=== PATIENT | female | born 1970 | race Caucasian/White ===

== ENCOUNTER 2020-02-22 10:02 | Emergency (ER) | payer BC, SELFPAY ==
[2020-02-22 10:03] VITALS: BP 140/79; PULSE 79; RESP 16; TEMP 36.8; O2SAT 98; BMI 29.6
--- NOTE | 2020-02-22 10:19 | HMH.EDHA ---
ED Disposition Clinical Impression: Viral pharyngitis Disposition: Home, Self-Care Condition on Discharge: Good Instructions: DI for Headache Additional Instructions: Please self quarantine until you feel healthy or if your COVID test does come back positive please quarantine for 14 days after the test. If the COVID test does come back negative do not go out to the public until you feel 100% perfectly healthy. Referrals: Mahesh Gomes [Primary Care Provider] - - Critical Care Critical Care Time: No Attestation: On 02/22/20, the high probability of a clinically significant, sudden or life threatening deterioration of the following system(s) required my full and direct attention, intervention and personal management. The time I documented below is in addition to time spent performing reported procedures but includes the following listed in this critical care notation. Medical Decision Making - Medical Records Medical records reviewed: Yes: I reviewed the patient's medical records. - [place] Inquiry Pt receiving controlled substance: No Vital Signs: 02/22/20 10:03 Temperature 98.2 F Temperature Source Oral Pulse Rate [Radial] 79 Respiratory Rate 16 Blood Pressure [Right Arm] 140/79 Blood Pressure Mean [Right Arm] 99 Blood Pressure Source [Right Arm] Automatic Cuff Blood Pressure Position [Right Arm] Sitting 02 Sat by Pulse Oximetry 98 Oxygen Delivery Method Room Air - Lab Data Lab results reviewed: Yes: I reviewed the patient's lab results. Lab Results 02/22/20 10:09: Group A Strep Rapid Negative Orders (Tests/Meds): ORDERS Category Date Time Status SARS-CoV-2, JOY Stat Lab 02/22/20 10:35 Ordered Strep Screen Confirmation Stat Micro 02/22/20 10:09 Received Medical Decision Narrative: Given patient's symptoms and with a negative strep test we will go ahead and COVID romaine. Headache HPI - General Chief Complaint: Headache Stated Complaint: fever,sore throat,headache Time Seen by Provider: 02/22/20 10:19 Mode of Arrival: Ambulatory Source of Information: Patient Limitations: No Limitations Description of Symptoms (Recalled from ER Triage Doc. by RN): Sore throat and headache since yesterday - History of Present Illness HPI Narrative: 49-year-old female presents the ED complaining of sore throat and headache. She states the symptoms started yesterday and she states it progressively got worse as the days gone on. Patient also states she has subjective fever last night where she had shakes and chills and was sweating and then felt like she was very cold as well. Her body temperature was not elevated but she did have subjective fever. 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 Not around patient's been around other healthcare workers have been around sick patients. Otherwise no other complaints - Related Data Previous Rx's Medication Instructions Recorded azithromycin 250 mg tablet 250 mg PO QDAY 5 Days #6 tab 04/09/19 Allergies Allergy/AdvReac Type Severity Reaction Status Date / Time No Known Allergies Allergy Unverified 09/17/17 14:41 [facility] History - Hepatitis A Screen Drug use history?: No High risk sexual behaviors?: No History of sexually transmitted infection?: No Currently employed?: No Childcare worker?: No Do you have indoor plumbing?: Yes Do you have electricity?: Yes Attestation statement:: This patient has been screened for Hepatitis A risk factors. I have reviewed the patient's past medical history: Yes - Social History Educational Level: Completed High School Alcohol Intake: never Occupational Status: employed Housing: house ROS Obtained: Yes All systems reviewed & no additional complaints - Constitutional Constitutional: Reports system reviewed and no additional complaints, except as docu - Eyes Eyes: Reports system reviewed and no additional complaints, except as docu - ENT Ea
[2020-02-22 10:23] LABS: Strep Scrn Group A (Rapid) Negative (Negative)
--- NOTE | 2020-02-22 11:13 | PC.NURSE ---
Spoke with Brea in lab related to Covid testing. States it will be a little while before they can get down here.
--- NOTE | 2020-02-22 11:29 | PC.NURSE ---
Spoke with Brea in the lab regarding the delay in the COVID test. She stated that the person doing the tests was on second floor collecting labs and that as soon as she was available she would sent her down.
[2020-02-22 11:48] VITALS: BP 140/79; PULSE 79; RESP 16; TEMP 36.8; O2SAT 98
[2020-02-23 10:57] LABS: Covid-19 Nasal PCR Sendout UK NOT DETECTED
== END 2020-02-22 11:52 | disposition home or self-care (01) ==
PROVIDERS: Emergency Provider Family Medicine; PCP Family Medicine
DX: J02.9 Acute pharyngitis, unspecified (principal); J45.909 Unspecified asthma, uncomplicated
CPT/HCPCS: 87430; 99282; U0003

== ENCOUNTER → 2020-10-08 14:30 | Outpatient (CLI) | payer BC, SELFPAY | PROVIDERS: PCP Nurse Practitioner Family; Visit Provider Nurse Practitioner Family | DX: Z11.52 Encounter for screening for COVID-19 (principal) | CPT/HCPCS: U0003 ==

== ENCOUNTER 2020-10-14 10:46 | Emergency (ER) | payer BC, SELFPAY ==
[2020-10-14 11:10] VITALS: BP 132/89; PULSE 101; RESP 14; TEMP 36.9; O2SAT 98; BMI 29.6
--- NOTE | 2020-10-14 11:25 | ED_ITS ---
[facility] Disposition Clinical Impression: Post-nasal drainage Disposition: Home, Self-Care Condition on Discharge: Good Instructions: DI for Viral Upper Respiratory Infection -- Adult Referrals: Mahesh Gomes [Primary Care Provider] - Time of Disposition: 11:27 Medical Decision Making - [place] Inquiry Pt receiving controlled substance: No Vital Signs: 10/14/20 11:10 Temperature 98.5 F Temperature Source Oral Pulse Rate [Right Brachial] 101 H Respiratory Rate 14 Blood Pressure [Right Arm] 132/89 Blood Pressure Mean [Right Arm] 103 Blood Pressure Source [Right Arm] Automatic Cuff Blood Pressure Position [Right Arm] Sitting 02 Sat by Pulse Oximetry 98 Oxygen Delivery Method Room Air Orders (Tests/Meds): ED MEDICATIONS Discontinued Medications Generic Name Dose Route Start Last Admin Trade Name Freq PRN Reason Stop Dose Admin Methylprednisolone Sodium Succinate 125 mg 10/14/20 11:28 Methylprednisolone Sod Succ 125mg Vial IM 10/14/20 11:29 ONCE ONE [facility] HPI - General Stated complaint: covid exposure Time Seen by Provider: 10/14/20 11:25 - History of Present Illness Provider Complaint: Patient has been exposed to COVID19, was tested and was negative, but is quarantining. Does not want to be retested but is requesting a steroid shot to help dry up drainage that she is having. Denies fever, sore throat, loss of taste or smell, vomiting or diarrhea. Onset (ago): day(s) (5) Location: face Relieving factors: none Exacerbating factors: none Associated symptoms: denies other symptoms Treatments prior to arrival: none - Related Data Previous Rx's Medication Instructions Recorded azithromycin 250 mg tablet 250 mg PO QDAY 5 Days #6 tab 04/09/19 Allergies Allergy/AdvReac Type Severity Reaction Status Date / Time No Known Allergies Allergy Verified 10/14/20 11:25 [facility] History - Hepatitis A Screen Attestation statement:: This patient has been screened for Hepatitis A risk factors. I have reviewed the patient's past medical history: Yes - Social History Alcohol Intake: never Occupational Status: employed Housing: house ROS Obtained: Yes All systems reviewed & no additional complaints - ENT Ears, Nose, Mouth, and Throat: Reports nasal congestion Physical Exam - General General appearance: alert, in no apparent distress - Head Head exam: normocephalic - Eye Eye exam: Present: PERRL - Expanded ENT Exam Throat exam: Present: other (postnasal drainage) - Respiratory Respiratory exam: Present: normal lung sounds bilaterally - Cardiovascular Cardiovascular exam: Present: regular rate, normal rhythm - Neurological Exam Neurological exam: Present: alert, oriented X3 - Psychiatric Psychiatric exam: Present: normal affect, normal mood
[2020-10-14 11:43] VITALS: BP 132/89; PULSE 101; RESP 14; TEMP 36.9; O2SAT 98
== END 2020-10-14 11:45 | disposition home or self-care (01) ==
PROVIDERS: Emergency Provider Physician Assistant; PCP Family Medicine
DX: Z20.822 Contact with and (suspected) exposure to COVID-19 (principal); R09.82 Postnasal drip
CPT/HCPCS: 96372; 99202; G0463

== ENCOUNTER 2020-10-19 20:50 | Emergency (ER) | payer BC, SELFPAY ==
[2020-10-19 21:02] VITALS: BP 121/93; PULSE 95; RESP 15; TEMP 36.9; O2SAT 96; BMI 29.2
--- NOTE | 2020-10-19 21:11 | CT_ITS ---
PROCEDURE: CT ANGIO CHEST CLINCIAL INDICATION: chest discomfort Shortness of breath, cough, fever, Covid19 COMPARISON: No exams were available for comparison TECHNIQUE: IV Contrast: 70ML Isovue 370 Axial images obtained with sagittal and coronal reformats. All CT scans at the facility use one or more dose reduction, viz: automated exposure control, ma/kV adjustment per patient size (including targeted exams where dose is matched to indication, i.e. head), or iterative reconstruction technique. FINDINGS: HEART AND MEDIASTINAL STRUCTURES: No evidence of pulmonary embolus, aortic aneurysm, or aortic dissection.. There are scattered small nodes within the mediastinum. LUNGS AND PLEURAL SPACES: Multi focal mostly peripheral areas of ground-glass attenuation consistent with Covid19 pneumonia. No effusions. There is a 5 mm subpleural nodule in the left lower lobe laterally BONY STRUCTURES: No acute bony abnormalities apparent. UPPER ABDOMEN: Unremarkable. ADDITIONAL FINDINGS: No other significant abnormalities. IMPRESSION: 1. No evidence of pulmonary embolus, aortic aneurysm, or aortic dissection. 2. Multifocal bilateral ground-glass infiltrates in keeping with Covid19 pneumonia Dictated by: Zeeshan Madison MD 10/20/2020 06:17 Zeeshan Madison MD in [place] 10/20/2020 06:17
--- NOTE | 2020-10-19 21:11 | XR_ITS ---
PROCEDURE: XR CHEST PORTABLE CLINICAL HISTORY: soa Shortness of air, possible Covid19 COMPARISON: CT CT ANGIO CHEST from 10/19/2020 FINDINGS: The cardiomediastinal silhouette and pulmonary vascularity are within normal limits. Patchy ground-glass infiltrate present in the right mid and lower lung zone and left perihilar region. No effusions No acute bony abnormalities. IMPRESSION: Patchy bilateral ground-glass infiltrates suspicious for Covid19 pneumonia Dictated by: Zeeshan Madison MD 10/20/2020 05:36 Zeeshan Madison MD in [place] 10/20/2020 05:36
[2020-10-19 21:18] LABS: Adenovirus,PCR Not Detected (NotDetected); Bordetella Pertussis Not Detected (NotDetected); Chlamydophila Pneumoniae, PCR Not Detected (NotDetected); Coronavirus 229E Not Detected (NotDetected); Coronavirus NL63 Not Detected (NotDetected); Coronavirus OC43 Not Detected (NotDetected); Coronovirus HKU1,PCR Not Detected (NotDetected); Human Metapneumovirus Not Detected (NotDetected); Influenza A, PCR Not Detected (NotDetected); Influenza AH1, 2009 Not Detected (NotDetected); Influenza AH1, PCR Not Detected (NotDetected); Influenza AH3,PCR Not Detected (NotDetected); Influenza B, PCR Not Detected (NotDetected); Mycoplasma Pneumoniae, PCR Not Detected (NotDetected); Parainfluenza 1, PCR Not Detected (NotDetected); Parainfluenza 2, PCR Not Detected (NotDetected); Parainfluenza 3, PCR Not Detected (NotDetected); Parainfluenza 4, PCR Not Detected (NotDetected); Respiratory Syncytial Virus Not Detected (NotDetected); Rhinovirus/Enterovirus Not Detected (NotDetected)
--- NOTE | 2020-10-19 21:26 | HMH.EDSOB ---
ED Disposition Clinical Impression: Pneumonia due to COVID-19 virus Disposition: Home, Self-Care Condition on Discharge: Good Instructions: DI for COVID-19 (Suspected or Confirmed ) Additional Instructions: fluids and see pcp for hipolito reyes Referrals: Mahesh Gomes [Primary Care Provider] - - Critical Care Critical Care Time: No Attestation: On 10/19/20, the high probability of a clinically significant, sudden or life threatening deterioration of the following system(s) required my full and direct attention, intervention and personal management. The time I documented below is in addition to time spent performing reported procedures but includes the following listed in this critical care notation. Medical Decision Making - Medical Records Medical records reviewed: Yes: I reviewed the patient's medical records. - [place] Inquiry Pt receiving controlled substance: No Vital Signs: 10/19/20 21:02 Temperature 98.4 F Temperature Source Oral Pulse Rate [Right Brachial] 95 H Respiratory Rate 15 Blood Pressure [Right Arm] 121/93 H Blood Pressure Mean [Right Arm] 102 Blood Pressure Source [Right Arm] Automatic Cuff Blood Pressure Position [Right Arm] Sitting 02 Sat by Pulse Oximetry 96 Oxygen Delivery Method Room Air - Lab Data Lab results reviewed: Yes: I reviewed the patient's lab results. Lab Results 10/19/20 21:07: Chlamy pneumoniae PCR Not detected, Adenovirus (PCR) Not detected, B. pertussis DNA (PCR) Not detected, Coronavirus OC43 (PCR) Not detected, Coronavirus HKU1 (PCR) Not detected, Coronavirus 229E (PCR) Not detected, SARS-CoV-2 (PCR) Detected A, Coronavirus NL63 (PCR) Not detected, Human Metapneumovir PCR Not detected, Influenza A (H1) PCR Not detected, Influ A (H1N1/09) PCR Not detected, Influenza A (H3) PCR Not detected, Influenza Type A (PCR) Not detected, Influenza Type B (PCR) Not detected, M. pneumoniae (PCR) Not detected, Parainfluenza 1 (PCR) Not detected, Parainfluenza 2 (PCR) Not detected, Parainfluenza 3 (PCR) Not detected, Parainfluenza 4 (PCR) Not detected, RSV (PCR) Not detected, Entero/Rhino (PCR) Not detected 10/19/20 21:10: WBC 5.4, RBC 4.63, Hgb 14.5, Hct 41.1, MCV 88.8, MCH 31.4 H, MCHC 35.3, RDW 14.0, Plt Count 211, MPV 9.4, Neut % (Auto) 66.7, Lymph % (Auto) 23.1, [place] % (Auto) 7.4, Eos % (Auto) 1.4, Baso % (Auto) 1.4, Neut # (Auto) 3.6, Lymph # (Auto) 1.2, [place] # (Auto) 0.4, Eos # (Auto) 0.1, Baso # (Auto) 0.1, ESR 94 H 10/19/20 21:10: Sodium 136, Potassium 4.0, Chloride 100, Carbon Dioxide 28, Anion Gap 12.0, BUN 10, Creatinine 0.90, Estimated Creat Clear 101, Estimated GFR 66, Est GFR ( Amer) 80, Glucose 121 H, Calcium 9.6, Total Bilirubin 0.4, Direct Bilirubin 0.3, Conjugated Bilirubin 0.0, Indirect Bilirubin 0.1, Unconjugated Bilirubin 0.0, AST 48 H, ALT 27, Alkaline Phosphatase 54, C-Reactive Protein 79.1 H, Total Protein 8.2, Albumin 4.6, Procalcitonin 0.073 10/19/20 21:10: SARS-CoV-2 IgG Ab (Rapid) Negative, SARS-CoV-2 IgM Ab (Rapid) Negative Result diagrams: 10/19/20 21:10 10/19/20 21:10 Orders (Tests/Meds): ED MEDICATIONS Generic Name Dose Route Start Last Admin Trade Name Freq PRN Reason Stop Dose Admin Sodium Chloride 1,000 mls @ 999 mls/hr 10/19/20 21:15 10/19/20 21:23 Sod Chlor 0.9% 1000ml Bag IV 10/19/20 22:15 999 mls/hr .Q1H1M GERRI Administration Discontinued Medications Generic Name Dose Route Start Last Admin Trade Name Freq PRN Reason Stop Dose Admin Dexamethasone Sodium Phosphate 10 mg 10/19/20 21:15 10/19/20 21:23 Dexamethasone 4mg/Ml 1ml Vial IV 10/19/20 21:16 10 mg ONCE ONE Administration Iopamidol 70 ml 10/19/20 22:32 10/19/20 22:33 Iopamidol-370 (76%);100ml Bottle IV 10/19/20 22:33 70 ml ONCE ONE Administration Sodium Chloride 40 ml 10/19/20 22:32 10/19/20 22:33 0.9 % Sodium Chloride 50 Ml Vial IV 10/19/20 22:33 40 ml ONCE ONE Administration Sodium Chloride 10 ml 10/19/20 22:32 10/19/20 2
--- NOTE | 2020-10-19 21:31 | PC.NURSE ---
maria isabel and spoke with latonya in lab; states she has received blood
[2020-10-19 21:33] LABS: Basophils # 0.1 K/mm3 (0-0.2); Basophils % 1.4 % (0.1-2.0); Eosinophils # 0.1 K/mm3 (0.0-0.4); Eosinophils % 1.4 % (0.1-12.0); Hematocrit 41.1 % (37.0-47.0); Hemoglobin 14.5 g/dL (12.2-16.2); Lymphocytes # 1.2 K/mm3 (0.7-4.5); Lymphocytes % 23.1 % (10-50); Mean Corpuscular HGB Conc 35.3 g/dL (31.8-35.4); Mean Corpuscular Hemoglobin 31.4 pg (27.0-31.2); Mean Corpuscular Volume 88.8 fl (81-99); Mean Platelet Volume 9.4 fl (7.4-10.4); Monocytes # 0.4 K/mm3 (0.1-1.0); Monocytes % 7.4 % (1.7-9.3); Neutrophils # 3.6 K/mm3 (1.8-7.8); Neutrophils % 66.7 % (37.0-80.0); Platelet Count 211 K/mm3 (142-424); Red Blood Count 4.63 M/mm3 (4.20-5.40); White Blood Count 5.4 K/mm3 (4.8-10.8)
[2020-10-19 21:53] LABS: Coronavirus 19 IgG Antibody Negative (Negative); Coronavirus 19 IgM Antibody Negative (Negative)
[2020-10-19 22:04] LABS: Alanine Aminotransferase 27 U/L (12-78); Albumin Level 4.6 g/dl (3.5-5.0); Alkaline Phosphatase 54 U/L (38-126); Aspartate Amino Transferase 48 U/L (14-36); Bilirubin,Direct 0.3 mg/dl (0.0-0.4); Bilirubin,Indirect 0.1 mg/dL (0.0-0.9); Bilirubin,Total 0.4 mg/dl (0.2-1.3); Blood Urea Nitrogen 10 mg/dl (7-17); Calcium 9.6 mg/dl (8.4-10.2); Carbon Dioxide 28 mmol/L (22.0-30.0); Chloride 100 mmol/L (98-107); Creatinine Clearance Estimated 101 mL/min (50-200); Estimated Glomerular Filt Rate 66 ml/min (>60); GFR (African American) 80 ML/MIN (>60); Glucose 121 mg/dl (74-100); Sodium 136 mmol/L (136-145); Total Protein,Serum 8.2 g/dl (6.3-8.2)
[2020-10-19 22:09] LABS: C-Reactive Protein 79.1 mg/L (0-4)
[2020-10-19 22:23] LABS: Procalcitonin 0.073 ng/mL (0.0-2.0)
[2020-10-19 22:27] LABS: Erythrocyte Sedimentation Rate 94 mm/hr (0-30)
--- NOTE | 2020-10-19 22:31 | PC.NURSE ---
pt back from RAD
--- NOTE | 2020-10-19 22:45 | PC.NURSE ---
collected urine and sent to lab. pt ambulated to bathroom without dyspnea. vss. waiting on covid result. explained it would be about another hour and 10 mins. offered to help with tv;stated she was fine. no complaints voiced. no needs voiced.
[2020-10-19 23:43] LABS: Coronavirus 19, PCR Detected (NotDetected)
[2020-10-19 23:59] VITALS: BP 124/76; PULSE 77; RESP 16; TEMP 36.7; O2SAT 98
== END 2020-10-20 00:11 | disposition home or self-care (01) ==
PROVIDERS: Emergency Provider Emergency Medicine; PCP Family Medicine
DX: U07.1 COVID-19 (principal); J12.82 Pneumonia due to coronavirus disease 2019
CPT/HCPCS: 71045; 71275; 80048; 80076; 84145; 85025; 85651; 86140; 86328; 87581; 87633; 87798; 96365; 96375; 99283; Q9967; U0003

== ENCOUNTER 2020-10-23 17:53 | Emergency (ER) | payer BC, SELFPAY ==
[2020-10-23 17:54] VITALS: BP 136/85; PULSE 92; RESP 18; TEMP 37.4; O2SAT 98; BMI 28.8
--- NOTE | 2020-10-23 18:06 | ECG_ITS ---
APPROVED REPORT Exam: Resting ECG HR:83 bpm ECG Measurements Heart Rate 83 AXES CA 140 P 51 QRSd 86 QRS 44 QT 386 T 31 QTc 453 Conclusion Normal sinus rhythm Normal ECG Electronically signed by : Mickey Cash, 10/24/2020 14:16:11
--- NOTE | 2020-10-23 18:09 | XR_ITS ---
PROCEDURE: XR CHEST PORTABLE CLINICAL HISTORY: cp; +COVID COMPARISON: CT CT ANGIO CHEST from 10/19/2020 CR XR CHEST PORTABLE from 10/19/2020 FINDINGS: The cardiomediastinal silhouette and pulmonary vascularity are within normal limits. There is subtle patchy density in the lower lobes which may be due to ground-glass infiltrates from Covid19 pneumonia as seen on the recent CT scan. No evidence of pneumothorax. No effusions. No acute bony abnormalities. IMPRESSION: Suspect patchy ground-glass infiltrates in the lower lobes. Dictated by: Zeeshan Madison MD 10/24/2020 06:32 Zeeshan Madison MD in [place] 10/24/2020 06:32
--- NOTE | 2020-10-23 18:17 | HMH.EDGENADL ---
ED Disposition Clinical Impression: SARS-associated coronavirus infection Disposition: Home, Self-Care Condition on Discharge: Good Prescriptions: dexAMETHasone [Dexamethasone] 6 mg PO DAILY #7 tab Transmission Status: Pending to [facility] #[id number] Referrals: Mahesh Gomes [Primary Care Provider] - - Critical Care Critical Care Time: No Attestation: On 10/23/20, the high probability of a clinically significant, sudden or life threatening deterioration of the following system(s) required my full and direct attention, intervention and personal management. The time I documented below is in addition to time spent performing reported procedures but includes the following listed in this critical care notation. Medical Decision Making - Medical Records Medical records reviewed: Yes: I reviewed the patient's medical records. - [place] Inquiry Pt receiving controlled substance: No Vital Signs: 10/23/20 17:54 10/23/20 18:21 10/23/20 18:41 Temperature 99.3 F Temperature Source Oral Pulse Rate [Apical] 92 H 84 80 Respiratory Rate 18 Blood Pressure [Right Arm] 136/85 126/84 Blood Pressure Mean [Right Arm] 102 98 Blood Pressure Source [Right Arm] Automatic Cuff Automatic Cuff Automatic Cuff Blood Pressure Position [Right Arm] Sitting Sitting Sitting 02 Sat by Pulse Oximetry 98 97 99 Oxygen Delivery Method Room Air Room Air Room Air - Lab Data Lab results reviewed: Yes: I reviewed the patient's lab results. Lab Results 10/23/20 18:12: WBC 6.3, RBC 4.59, Hgb 13.7, Hct 42.0, MCV 91.5, MCH 29.9, MCHC 32.7, RDW 14.0, Plt Count 277 D, MPV 9.3, Neut % (Auto) 62.2, Lymph % (Auto) 27.8, [place] % (Auto) 7.5, Eos % (Auto) 1.5, Baso % (Auto) 1.0, Neut # (Auto) 3.9, Lymph # (Auto) 1.8, [place] # (Auto) 0.5, Eos # (Auto) 0.1, Baso # (Auto) 0.1 10/23/20 18:12: Sodium 139, Potassium 3.7, Chloride 100, Carbon Dioxide 32 H, Anion Gap 10.7, BUN 10, Creatinine 0.80, Estimated Creat Clear 112, Estimated GFR 75, Est GFR ( Amer) 91, Glucose 108 H, Calcium 9.5, Total Bilirubin 0.3, AST 33, ALT 17, Alkaline Phosphatase 45, Troponin I < 0.01, NT-Pro-B Natriuret Pep 51.7, Total Protein 8.6 H, Albumin 4.5, Globulin 4.1 H, Albumin/Globulin Ratio 1.1 10/23/20 18:12: ESR 54 H 10/23/20 18:12: Lactate 0.8 Result diagrams: 10/23/20 18:12 10/23/20 18:12 Orders (Tests/Meds): ED MEDICATIONS Generic Name Dose Route Start Last Admin Trade Name Freq PRN Reason Stop Dose Admin Sodium Chloride 1,000 mls @ 999 mls/hr 10/23/20 18:15 10/23/20 18:36 Sod Chlor 0.9% 1000ml Bag IV 10/23/20 19:15 999 mls/hr .Q1H1M GERRI Administration Discontinued Medications Generic Name Dose Route Start Last Admin Trade Name Freq PRN Reason Stop Dose Admin Dexamethasone Sodium Phosphate 8 mg 10/23/20 18:10 10/23/20 18:39 Dexamethasone 4mg/Ml 1ml Vial IV 10/23/20 18:11 8 mg ONCE ONE Administration Ketorolac Tromethamine 30 mg 10/23/20 18:09 10/23/20 18:37 Ketorolac 30mg/Ml Vial IV 10/23/20 18:10 30 mg ONCE ONE Administration Ondansetron HCl 8 mg 10/23/20 18:09 10/23/20 18:36 Ondansetron 4mg/2ml Vial IV 10/23/20 18:10 8 mg ONCE ONE Administration Orphenadrine Citrate 60 mg 10/23/20 18:09 10/23/20 18:40 Orphenadrine Citrate 60mg/2ml Vial IV 10/23/20 18:10 60 mg ONCE ONE Administration ORDERS Category Date Time Status XR chest portable Stat Exams 10/23/20 18:09 Taken Troponin I Q3H Lab 10/23/20 21:15 Ordered Troponin I Q3H Lab 10/24/20 00:15 Ordered Blood Culture Stat Micro 10/23/20 18:09 Received - Radiology Data #1 Image(s): Chest Image Reviewed: Yes I reviewed the patient's radiology results Preliminary Findings: Normal/NAD - ECG Data Tracing #1 ECG initial impression date: 10/23/20 ECG initial impression time: 18:03 ECG normal with no acute: arrhythmias, ischemia, conduction abnormalities, chamber hypertrophy Normal Sinus Rhythm: Yes General A
[2020-10-23 18:21] VITALS: PULSE 84; O2SAT 97
--- NOTE | 2020-10-23 18:21 | PC.NURSE ---
Rad at bedside
[2020-10-23 18:22] LABS: Basophils # 0.1 K/mm3 (0-0.2); Eosinophils # 0.1 K/mm3 (0.0-0.4); Eosinophils % 1.5 % (0.1-12.0); Hemoglobin 13.7 g/dL (12.2-16.2); Lymphocytes # 1.8 K/mm3 (0.7-4.5); Lymphocytes % 27.8 % (10-50); Mean Corpuscular HGB Conc 32.7 g/dL (31.8-35.4); Mean Corpuscular Hemoglobin 29.9 pg (27.0-31.2); Mean Corpuscular Volume 91.5 fl (81-99); Mean Platelet Volume 9.3 fl (7.4-10.4); Monocytes # 0.5 K/mm3 (0.1-1.0); Monocytes % 7.5 % (1.7-9.3); Neutrophils # 3.9 K/mm3 (1.8-7.8); Neutrophils % 62.2 % (37.0-80.0); Platelet Count 277 K/mm3 (142-424); Red Blood Count 4.59 M/mm3 (4.20-5.40); White Blood Count 6.3 K/mm3 (4.8-10.8)
[2020-10-23 18:34] LABS: Alanine Aminotransferase 17 U/L (12-78); Albumin Level 4.5 g/dl (3.5-5.0); Albumin/Globulin Ratio 1.1 (1.1-1.8); Alkaline Phosphatase 45 U/L (38-126); Anion Gap 10.7 mEq/L (5-15); Aspartate Amino Transferase 33 U/L (14-36); Bilirubin,Total 0.3 mg/dl (0.2-1.3); Blood Urea Nitrogen 10 mg/dl (7-17); Calcium 9.5 mg/dl (8.4-10.2); Carbon Dioxide 32 mmol/L (22.0-30.0); Chloride 100 mmol/L (98-107); Creatinine Clearance Estimated 112 mL/min (50-200); Estimated Glomerular Filt Rate 75 ml/min (>60); GFR (African American) 91 ML/MIN (>60); Globulin 4.1 g/dL (1.3-3.2); Glucose 108 mg/dl (74-100); Lactic Acid 0.8 mmol/L (0.7-2.1); Potassium 3.7 mmoL/L (3.5-5.1); Sodium 139 mmol/L (136-145); Total Protein,Serum 8.6 g/dl (6.3-8.2)
[2020-10-23 18:41] VITALS: BP 126/84; PULSE 80; O2SAT 99
[2020-10-23 18:43] LABS: Erythrocyte Sedimentation Rate 54 mm/hr (0-30)
[2020-10-23 18:46] LABS: NT Pro Brain Natriuretic Pep. 51.7 pg/mL (0-125)
[2020-10-23 18:48] LABS: Troponin I < 0.01 ng/ml (0.00-0.034)
[2020-10-23 19:37] VITALS: BP 115/76; PULSE 73; RESP 18; TEMP 37.4; O2SAT 94
== END 2020-10-23 19:41 | disposition home or self-care (01) ==
PROVIDERS: Emergency Provider Emergency Medicine; PCP Family Medicine
DX: U07.1 COVID-19 (principal); J12.82 Pneumonia due to coronavirus disease 2019; B97.21 SARS-associated coronavirus as the cause of diseases classified elsewhere
CPT/HCPCS: 71045; 80053; 83605; 83880; 84484; 85025; 85651; 87040; 93005; 96365; 96375; 99284; J2405

== ENCOUNTER → 2021-06-26 13:06 | Outpatient (CLI) | payer BC, SELFPAY ==
[2021-06-26 14:00] VITALS: PULSE 75; PULSE 80
[2021-06-26 15:04] LABS: Basophils # 0.1 K/mm3 (0-0.2); Basophils % 1.7 % (0.1-2.0); Eosinophils # 0.2 K/mm3 (0.0-0.4); Eosinophils % 3.1 % (0.1-12.0); Hematocrit 41.6 % (37.0-47.0); Hemoglobin 13.5 g/dL (12.2-16.2); Lymphocytes # 2.8 K/mm3 (0.7-4.5); Mean Corpuscular HGB Conc 32.4 g/dL (31.8-35.4); Mean Corpuscular Hemoglobin 29.7 pg (27.0-31.2); Mean Corpuscular Volume 91.5 fl (81-99); Mean Platelet Volume 8.6 fl (7.4-10.4); Monocytes # 0.2 K/mm3 (0.1-1.0); Monocytes % 3.7 % (1.7-9.3); Neutrophils # 3.3 K/mm3 (1.8-7.8); Neutrophils % 49.5 % (37.0-80.0); Platelet Count 407 K/mm3 (142-424); Red Blood Count 4.55 M/mm3 (4.20-5.40); White Blood Count 6.6 K/mm3 (4.8-10.8)
[2021-06-26 15:57] LABS: C-Reactive Protein 12.1 mg/L (0-4)
[2021-06-28 11:20] LABS: Alpha-1-Antitrypsin 150 mg/dL (101-187)
== END ==
PROVIDERS: PCP Family Medicine; Visit Provider Internal Medicine Pulmonary Disease
DX: J45.909 Unspecified asthma, uncomplicated (principal)
CPT/HCPCS: 36415; 82103; 85025; 86140; 94060; 94640; 94727; 94729

== ENCOUNTER → 2021-06-26 14:39 | Outpatient (CLI) | payer BC, SELFPAY | PROVIDERS: Visit Provider Internal Medicine Pulmonary Disease | DX: R06.09 Other forms of dyspnea (principal) | CPT/HCPCS: 36415; 82103; 85025; 86140 ==

== ENCOUNTER → 2021-07-18 14:47 | Outpatient (CLI) | payer BC, SELFPAY ==
[2021-07-18 15:37] LABS: Chloride 100 mmol/L (98-107); Potassium 3.9 mmoL/L (3.5-5.1); Sodium 139 mmol/L (136-145)
[2021-07-18 15:39] LABS: Blood Urea Nitrogen 11 mg/dl (7-17); Estimated Glomerular Filt Rate 88 ml/min (>60); GFR (African American) 106 ML/MIN (>60)
[2021-07-18 15:40] LABS: Alanine Aminotransferase 23 U/L (12-78); Albumin Level 4.3 g/dl (3.5-5.0); Albumin/Globulin Ratio 1.4 (1.1-1.8); Alkaline Phosphatase 52 U/L (38-126); Anion Gap 13.9 mEq/L (5-15); Aspartate Amino Transferase 39 U/L (14-36); Bilirubin,Total 0.4 mg/dl (0.2-1.3); Calcium 9.5 mg/dl (8.4-10.2); Carbon Dioxide 29 mmol/L (22.0-30.0); Globulin 3.1 g/dL (1.3-3.2); Glucose 131 mg/dl (74-100); Total Protein,Serum 7.4 g/dl (6.3-8.2)
[2021-07-18 15:46] LABS: Basophils # 0.1 K/mm3 (0-0.2); Basophils % 0.9 % (0.1-2.0); Eosinophils # 0.2 K/mm3 (0.0-0.4); Eosinophils % 3.5 % (0.1-12.0); Hematocrit 42.9 % (37.0-47.0); Hemoglobin 13.8 g/dL (12.2-16.2); Lymphocytes # 1.9 K/mm3 (0.7-4.5); Lymphocytes % 29.5 % (10-50); Mean Corpuscular HGB Conc 32.1 g/dL (31.8-35.4); Mean Corpuscular Hemoglobin 30.3 pg (27.0-31.2); Mean Corpuscular Volume 94.3 fl (81-99); Mean Platelet Volume 8.2 fl (7.4-10.4); Monocytes # 0.3 K/mm3 (0.1-1.0); Monocytes % 3.9 % (1.7-9.3); Neutrophils % 62.3 % (37.0-80.0); Platelet Count 338 K/mm3 (142-424); Red Blood Count 4.54 M/mm3 (4.20-5.40); Red Cell Distribution Width 13.3 % (11.5-17.5); White Blood Count 6.4 K/mm3 (4.8-10.8)
[2021-07-18 16:07] LABS: Triiodothryronine (T3) Uptake 27 % (23.5-40.5)
[2021-07-18 16:08] LABS: Free Thyroxine Index 2.1 ug/dL (5.93-13.13); T4 (Thyroxine) 7.9 ug/dl (5.53-11.0)
== END ==
PROVIDERS: Visit Provider Internal Medicine Adolescent Medicine
DX: R61 Generalized hyperhidrosis (principal); R79.82 Elevated C-reactive protein (CRP)
CPT/HCPCS: 36415; 80053; 84436; 84443; 84479; 85025; 86140

== ENCOUNTER → 2021-07-19 16:38 | Outpatient (CLI) | payer BC, SELFPAY | PROVIDERS: Visit Provider Nurse Practitioner Family | DX: J02.9 Acute pharyngitis, unspecified (principal) | CPT/HCPCS: 87070 ==

== ENCOUNTER 2021-11-20 06:30 | Observation (INO) | payer BC, SELFPAY ==
[2021-11-20] VITALS (9 sets, daily range): BP systolic 97–135; BP diastolic 64–79; PULSE 50–81; RESP 14–18; TEMP 36.6–36.9; O2SAT 98–100; BMI 28.5; BMI 28.3
--- NOTE | 2021-11-20 | CA_ITS ---
APPROVED REPORT Exam: Exercise Treadmill Technologist: Joyce Ivy, Ht: 5 ft 8 in Wt: 188 lbs BSA: 1.99 m2 HR: 63 bpm BP: 137/82 mmHg Medical History Medications: Diazepam,,,,, Estradiol,,,,, Famotidine,,,,, Singulair,,,,, Vitamin D2,,,,, Sumatriptan,,,,, Elavil,,,,, Tolteradine,,,,, RImegapant,,,,, Stress Test Details Test: Cristiano HR Resting HR: 80 bpm Max Heart Rate (APMHR): 167.156008 bpm Max HR Achieved: 153 bpm Target HR (85% APMHR): 141.896028 bpm % of APMHR: 91.62 Recovery HR: 95 bpm BP Resting BP: 146/89 mmHg Max BP: 168/88 mmHg Recovery BP: 159.0/84.0 mmHg ECG Resting ECG: NSR, NSSTTW Abnormalities Inferiorly Clinical Reason for Termination: Dyspnea Exercise duration: 07:00 min Highest Stage Achieved: Exercise capacity: 10.1 METs Stress ECG Conclusion 7 min Max HR: 153 % of PM: 107 METs: 10.1 Test stopped due to: SOA Symptoms: No CP Arrhythmias/Ectopy: None ST-T Changes: <1.5mm ST Segment changes Conclusion: Abnormal, Non-Diagnostic Test Summary . Standing . . . . . . . Stop exercise at 07:00 . . . . . . Electronically signed by : Sky Franco MD 11/20/2021 15:48:25
--- NOTE | 2021-11-20 06:31 | ECG_ITS ---
APPROVED REPORT Exam: Resting ECG HR:75 bpm ECG Measurements Heart Rate 75 AXES WV 152 P 41 QRSd 92 QRS 11 QT 397 T 1 QTc 425 Conclusion SINUS RHYTHM LOW QRS VOLTAGE IN PRECORDIAL LEADS [QRS DEFLECTION < 1.0 mV IN CHEST LEADS] NONSPECIFIC T-WAVE ABNORMALITY BORDERLINE ECG UNCONFIRMED REPORT Electronically signed by : Mickey Cash MD 11/20/2021 17:59:01
--- NOTE | 2021-11-20 06:38 | XR_ITS ---
FINAL REPORT CLINICAL HISTORY: angina, left sided chest pain since 1am COMPARISON: 10/23/2020 FINDINGS: 2 views of the chest were obtained . The heart is normal in size. The mediastinum is within normal limits. The lungs are clear. There is no pneumothorax. Osseous structures are unremarkable. IMPRESSION: No acute cardiopulmonary process. Reviewed, Interpreted and Dictated by Carlos Puckett MD Transcribed by Michelle Medley Authenticated by Carlos Puckett MD on 11/20/2021 08:19:44 AM [facility]
[2021-11-20 06:46] LABS: Basophils # 0.1 K/mm3 (0-0.2); Eosinophils # 0.3 K/mm3 (0.0-0.4); Eosinophils % 4.5 % (0.1-12.0); Hematocrit 38.1 % (37.0-47.0); Hemoglobin 12.5 g/dL (12.2-16.2); Lymphocytes # 2.4 K/mm3 (0.7-4.5); Lymphocytes % 40.4 % (10-50); Mean Corpuscular HGB Conc 32.9 g/dL (31.8-35.4); Mean Corpuscular Hemoglobin 30.4 pg (27.0-31.2); Mean Corpuscular Volume 92.3 fl (81-99); Mean Platelet Volume 7.8 fl (7.4-10.4); Monocytes # 0.2 K/mm3 (0.1-1.0); Monocytes % 3.7 % (1.7-9.3); Neutrophils % 50.4 % (37.0-80.0); Platelet Count 341 K/mm3 (142-424); Red Blood Count 4.12 M/mm3 (4.20-5.40); Red Cell Distribution Width 13.2 % (11.5-17.5); White Blood Count 5.9 K/mm3 (4.8-10.8)
--- NOTE | 2021-11-20 06:54 | HMH.EDCP ---
ED Disposition Clinical Impression: Unstable angina pectoris Disposition: Admitted as Observation Condition on Discharge: Good Referrals: [place] MD [Primary Care Provider] - - Critical Care Critical Care Time: No Attestation: On 11/20/21, the high probability of a clinically significant, sudden or life threatening deterioration of the following system(s) required my full and direct attention, intervention and personal management. The time I documented below is in addition to time spent performing reported procedures but includes the following listed in this critical care notation. Medical Decision Making - Medical Records Medical records reviewed: Yes: I reviewed the patient's medical records. - [place] Inquiry Pt receiving controlled substance: No Vital Signs: 11/20/21 06:30 11/20/21 07:15 11/20/21 07:31 Temperature 98.4 F Temperature Source Oral Pulse Rate 60 57 L Pulse Rate [Right] 81 Respiratory Rate 17 14 16 Blood Pressure 115/72 97/64 L Blood Pressure [Right Arm] 135/79 Blood Pressure Mean 86 75 Blood Pressure Mean [Right Arm] 97 Blood Pressure Source [Right Arm] Automatic Cuff 02 Sat by Pulse Oximetry 99 98 100 Oxygen Delivery Method Room Air 11/20/21 08:00 11/20/21 08:30 11/20/21 09:00 Temperature Temperature Source Pulse Rate 50 L 58 L 62 Pulse Rate [Right] Respiratory Rate 16 16 16 Blood Pressure 101/70 L 101/67 L 105/64 L Blood Pressure [Right Arm] Blood Pressure Mean 80 81 72 Blood Pressure Mean [Right Arm] Blood Pressure Source [Right Arm] 02 Sat by Pulse Oximetry 98 98 99 Oxygen Delivery Method - Lab Data Lab results reviewed: Yes: I reviewed the patient's lab results. Lab Results 11/20/21 06:30: WBC 5.9, RBC 4.12 L, Hgb 12.5, Hct 38.1, MCV 92.3, MCH 30.4, MCHC 32.9, RDW 13.2, Plt Count 341, MPV 7.8, Neut % (Auto) 50.4, Lymph % (Auto) 40.4, [place] % (Auto) 3.7, Eos % (Auto) 4.5, Baso % (Auto) 1.0, Neut # (Auto) 3.0, Lymph # (Auto) 2.4, [place] # (Auto) 0.2, Eos # (Auto) 0.3, Baso # (Auto) 0.1, ESR 27 11/20/21 06:30: Sodium 135 L, Potassium 3.7, Chloride 104, Carbon Dioxide 28, Anion Gap 6.7, BUN 13, Creatinine 0.70, Estimated Creat Clear 125, Estimated GFR 88, Est GFR ( Amer) 106, Glucose 97, Calcium 8.0 L, Total Bilirubin 0.3, AST 24, ALT 11 L, Alkaline Phosphatase 37 L, Troponin I < 0.01, C-Reactive Protein 17.1 H, Total Protein 6.7, Albumin 3.9, Globulin 2.8, Albumin/Globulin Ratio 1.4, Procalcitonin < 0.030 11/20/21 06:30: Magnesium 2.0 11/20/21 06:30: Lipase 94 Result diagrams: 11/20/21 06:30 11/20/21 06:30 Orders (Tests/Meds): ED MEDICATIONS Generic Name Dose Route Start Last Admin Trade Name Freq PRN Reason Stop Dose Admin Sodium Chloride 8 ml 11/20/21 07:04 Sodium Chloride 0.9% 10ml Vial IV 12/20/21 07:03 NEEDED PRN dilute pepcid Discontinued Medications Generic Name Dose Route Start Last Admin Trade Name Freq PRN Reason Stop Dose Admin Aspirin 324 mg 11/20/21 06:35 11/20/21 06:38 Aspirin 81mg Chewable Tablet PO 11/20/21 06:36 324 mg ONCE ONE Administration Famotidine 20 mg 11/20/21 07:04 11/20/21 07:11 Famotidine 20mg/2ml Vial IV 11/20/21 07:05 20 mg ONCE ONE Administration Sodium Chloride 1,000 mls @ 999 mls/hr 11/20/21 06:45 11/20/21 06:39 Sod Chlor 0.9% 1000ml Bag IV 11/20/21 07:45 999 mls/hr .Q1H1M GERRI Administration Metoclopramide HCl 10 mg 11/20/21 07:04 11/20/21 07:11 Metoclopramide Hcl 10mg/2ml Vial IVP 11/20/21 07:05 10 mg ONCE ONE Administration Nitroglycerin 0.4 mg 11/20/21 06:34 11/20/21 06:39 Nitroglycerin 0.4mg Sl Tablet SL 11/20/21 06:35 0.4 mg ONCE ONE Administration Ondansetron HCl 4 mg 11/20/21 06:53 11/20/21 07:11 Ondansetron 4mg/2ml Vial IV 11/20/21 06:54 4 mg ONCE ONE Administration ORDERS Category Date Time Status Troponin I Q3H Lab 11/20/21 09:45 Ordered Troponin I Q3H Lab 11/20/21
[2021-11-20 06:58] LABS: Chloride 104 mmol/L (98-107); Potassium 3.7 mmoL/L (3.5-5.1); Sodium 135 mmol/L (136-145)
[2021-11-20 07:01] LABS: Alanine Aminotransferase 11 U/L (12-78); Albumin Level 3.9 g/dl (3.5-5.0); Albumin/Globulin Ratio 1.4 (1.1-1.8); Alkaline Phosphatase 37 U/L (38-126); Anion Gap 6.7 mEq/L (5-15); Aspartate Amino Transferase 24 U/L (14-36); Bilirubin,Total 0.3 mg/dl (0.2-1.3); Blood Urea Nitrogen 13 mg/dl (7-17); Carbon Dioxide 28 mmol/L (22.0-30.0); Creatinine Clearance Estimated 125 mL/min (50-200); Estimated Glomerular Filt Rate 88 ml/min (>60); GFR (African American) 106 ML/MIN (>60); Globulin 2.8 g/dL (1.3-3.2); Total Protein,Serum 6.7 g/dl (6.3-8.2)
[2021-11-20 07:02] LABS: Glucose 97 mg/dl (74-100)
[2021-11-20 07:07] LABS: C-Reactive Protein 17.1 mg/L (0-4)
[2021-11-20 07:19] LABS: Lipase 94 U/L (23-300)
[2021-11-20 07:24] LABS: Erythrocyte Sedimentation Rate 27 mm/hr (0-30)
--- NOTE | 2021-11-20 07:36 | ECG_ITS ---
APPROVED REPORT Exam: Resting ECG HR:60 bpm ECG Measurements Heart Rate 60 AXES OK 140 P 29 QRSd 94 QRS 17 QT 437 T 14 QTc 438 Conclusion SINUS RHYTHM LOW QRS VOLTAGE IN PRECORDIAL LEADS [QRS DEFLECTION < 1.0 mV IN CHEST LEADS] NONSPECIFIC T-WAVE ABNORMALITY BORDERLINE ECG UNCONFIRMED REPORT Electronically signed by : Mickey Cash MD 11/21/2021 13:51:09
[2021-11-20 07:37] LABS: Procalcitonin < 0.030 ng/mL (0.0-2.0); Troponin I < 0.01 ng/ml (0.00-0.034)
--- NOTE | 2021-11-20 08:29 | NM_ITS ---
APPROVED REPORT Exam: Nuclear Stress Test Indication: pre diabetic, former tob user, c.p., nausea, abn ekg Patient Location: Outpatient Stress Tech: Mariah Iniguez PR Tech:Zaira Tyson, ARRT, RT (R)(N) Ht: 5 ft 8 in Wt: 188 lbs Bra Size: 38D HR: 80 bpm BP: 146/89 mmHg BSA: 1.99 m2 BMI: 28.5 History: pre diabetic, former tob user, c.p., nausea, abn ekg Procedure: Patient exercised on Cristiano protocol 7:00 minutes and sec, resting heart rate 80 bpm, resting blood pressure 146/89 mmHg, with exercise maximum heart rate achived was 153 bpm which is 92 % of the maximum predicted heart rate and blood pressure was 162/90 mmHg. Patient denied any complaint of chest pain. Patient has good exercise capacity, achieved 10.1 METs of workload on treadmill, the blood pressure response to exercise was Adequate. Electrocardiogram Resting electrocardiogram shows sinus rhythm nonspecific ST-T changes, with exercise there is less than 1.[address] segment depression noted from the baseline EKG. The EKG portion of the exercise Myoview was nondiagnostic due to baseline abnormal EKG. Cardiac Stress and Resting SPECT Images: Cardiac Stress and Resting SPECT images were obtained using technetium 99m Myoview 31.0 mCi stress and 10.24 mCi at rest. Gated SPECT for analysis of segmental wall motion and calculation of the ejection fraction also done. Cardiac stress and resting SPECT images show mild fixed defect in the anterior wall with normal laurie gated SPECT is likely secondary to soft tissue attenuation, no reversible ischemia seen, compared right ejection fraction is over 65% with no regional wall motion abnormality, right ventricle is normal size and contractility. Conclusion: 1. The EKG portion of the exercise Myoview was nondiagnostic due to baseline abnormal EKG, patient has good exercise capacity achieved 10.1 METs of workload on treadmill, the blood pressure response to exercise was adequate, there was no exercise-induced chest discomfort. 2. No scintigraphic evidence of reversible ischemia seen, computer derived ejection fraction is over 65% with no regional wall motion abnormality, right ventricle is normal size and contractility. 3. Likely normal exercise Myoview study. Electronically signed by : Sky Franco MD 11/20/2021 16:16:15
--- NOTE | 2021-11-20 09:45 | PC.NURSE ---
report called to floor
--- NOTE | 2021-11-20 09:47 | CA_ITS ---
APPROVED REPORT EXAM: Comprehensive 2D, Doppler, and color-flow Echocardiogram Email Marketing Executive: Dejah Anaya CRT Ht: 5 ft 8 in Wt: 188lbs BSA: 1.99 BP: 105/64 mmHg Indications: Chest Pain, Hyperlipidemia, covid 10/20. 2D Dimensions LVOT 1.93 cm (M/F) 1.5-2.5 LA Volume 42.00 mL LA Volume Index 21.10 mL/m2 (M/F) 16-34 M-Mode Dimensions RVDd 1.98 cm (0.9-2.6) LA Diam 3.04 cm (1.9-4.0) LVDd 4.66 cm (3.5-5.7) Ao Diam 3.71 cm (2.0-3.7) LVDs 3.02 cm (3.5-5.7) IVSd 1.48 cm (0.6-1.1) PWd 0.74 cm (0.6-1.1) EF (Teich) 64.50% FS 35.20% EDV (Teich) 100.30 mL ESV (Teich) 35.60 mL LV Diastology E Decel Time 140.00 (160-240 msec) E/A Ratio 1.11 MED E' 12.10 (< 7 cm/sec) MED A' 14.00 cm/s E'/MED E' Ratio 5.84 (>14) LAT E' 10.80 (<10 cm/sec) LAT A' 8.60 cm/s E/LAT E' Ratio 6.55 (>14) Aortic Valve AO Peak GR. 5.90 mmHg Mitral Valve MV A Velocity 64.00 (40-130 cm/s) E/A Ratio 1.11 MV Decel. Time 140.00 (160-240 ms) Pulmonary Valve PV Peak Velocity 84.00 (50-150 cm/s) Tricuspid Valve TR P. Velocity 227.00 cm/s RAP Estimate 10.00 mmHg RVSP 30.70 mmHg Left Ventricle Left atrium is normal size, left ventricle is normal size, there is no concentric left ventricular hypertrophy, visually estimated ejection fraction 55% with no regional wall motion abnormality, diastolic parameters are within normal range. Right Ventricle Right atrium and right ventricle are normal size and contractility. Aortic Valve Aortic valve is grossly normal, there is no aortic stenosis or aortic insufficiency. Mitral Valve Mitral valve grossly normal, there is trace mitral regurgitation. Tricuspid Valve Tricuspid valve is grossly normal, there is trace tricuspid regurgitation, tricuspid regurgitation jet velocity is inadequate for calculation of the right ventricular systolic pressure. Pulmonic Valve Pulmonic valve is poorly visualized. Great Vessels Aortic root is normal size. Inferior vena cava is normal size with normal inspiratory collapse. Pericardium No significant pericardial effusion noted. Conclusion 1. Normal left ventricular size, preserved left ventricular systolic function, visually estimated ejection fraction 55% with no regional wall motion abnormality, diastolic parameters are within normal range. 2. Trace mitral and tricuspid regurgitation. 3. No significant pericardial effusion. 4. Inferior vena cava normal size with normal inspiratory collapse. Electronically signed by : Sky Franco MD 11/20/2021 13:24:02
--- NOTE | 2021-11-20 09:55 | P.CONPHA_ITS ---
[facility] Pharmacy VTE Monitoring - Patient Demographics Admission date: 11/20/21 Report Date: 11/20/21 Time: 09:55 Allergies/Adverse Reactions: Patient Allergies No Known Allergies Allergy (Verified 08/22/21 14:28) Height: 1.73 m Weight: 85.275 kg Patient Problems: Current Active Problems Unstable angina pectoris (Acute) - VTE Risk Labs: VTE Related Lab Results Hgb 12.5 g/dL (12.2-16.2) 11/20/21 06:30 Hct 38.1 % (37.0-47.0) 11/20/21 06:30 Plt Count 341 K/mm3 (142-424) 11/20/21 06:30 BUN 13 mg/dl (7-17) 11/20/21 06:30 Creatinine 0.70 mg/dl (0.52-1.04) 11/20/21 06:30 Estimated Creat Clear 125 mL/min (50-200) 11/20/21 06:30 - Prophylaxis VTE Prophylaxis Ordered?: Yes Types of VTE Prophylaxis: TEDS Knee High Location of Applied Device: Bilateral Lower Extremeties
--- NOTE | 2021-11-20 10:02 | HMH.PHAINT ---
MEDICATION RECONCILIATION COMPLETED ON PATIENT USING EXTERNAL FILL HISTORY FROM PHARMACY AND MAE REPORT. -SHERINE JENSEND
--- NOTE | 2021-11-20 10:07 | PC.NURSE ---
report called to signals intelligence superintendent
[2021-11-20 10:09] LABS: Chol/HDL Ratio 3.5 (1-3.5); Cholesterol 228 mg/dl (140-200); HDL Cholesterol 65 mg/dl (40-60)
[2021-11-20 10:10] LABS: Coronavirus 19, PCR Not Detected (NotDetected); Influenza A, PCR Not Detected (NotDetected); Influenza B, PCR Not Detected (NotDetected)
[2021-11-20 10:16] LABS: Triglycerides 418 mg/dl (30-150)
[2021-11-20 10:17] LABS: Troponin I < 0.01 ng/ml (0.00-0.034)
[2021-11-20 10:20] LABS: Direct LDL Cholesterol 70.96 mg/dL (100-129)
--- NOTE | 2021-11-20 10:24 | PC.NURSE ---
ECHO at bedside
--- NOTE | 2021-11-20 14:15 | PC.NURSE ---
[id number] patient down for stress test
--- NOTE | 2021-11-20 16:32 | HMH.HPDC ---
General - General Admission date:: 11/20/21 Discharge date: 11/20/21 *Admission Date: 11/20/21 *Chief complaint: GERD and Chest pain *History of present illness: 51-year-old white female with known reflux disease who had been placed on proton pump inhibitor and H2 solange by ENT but stopped taking these about 3 to 4 weeks ago because her allergy/sinus symptoms had improved. She woke up at 1 AM this morning with severe heartburn, reflux and hot liquid in her throat sensations but then began to have chest pressure and pain that radiated into her left arm. She reported to the emergency department where EKG with pain had some ST-T wave flattening, and she was admitted for further evaluation and risk stratification. [facility] History I have reviewed the patient's past medical history: Yes Medical History: Reports:: Asthma, Hyperlipidemia, Migraine *Have you ever received a pneumonia vaccine?: No *Have you received a flu vaccine this season?: Yes Other Medical History: Reports: Other (TMJ) Laterality Cases: Bilateral: Tonsillectomy Other Surgeries: Yes: Appendectomy, Cholecystectomy, Hysterectomy-Total, Hysterectomy-Partial Amputation: No Fractures: No - *Social History Smoking Status: Former smoker Alcohol Intake: never Substance Use Type: denies use *Occupational Status:: employed Housing: house *Travel in the last 8 weeks: None Family Hx:: No significant family history Review of Systems - Review of Systems Review of systems:: pertinent systems reviewed and negative unless documented below - *Neurologic Denies seizure-like activity Exam Vital signs and Labs for Last 24 Hours: Temp Pulse Resp BP Pulse Ox 98 F 62 16 103/65 L 99 11/20/21 11:33 11/20/21 11:33 11/20/21 11:33 11/20/21 11:33 11/20/21 11:06 Laboratory Results - last 24 hr 11/20/21 06:30: WBC 5.9, RBC 4.12 L, Hgb 12.5, Hct 38.1, MCV 92.3, MCH 30.4, MCHC 32.9, RDW 13.2, Plt Count 341, MPV 7.8, Neut % (Auto) 50.4, Lymph % (Auto) 40.4, [place] % (Auto) 3.7, Eos % (Auto) 4.5, Baso % (Auto) 1.0, Neut # (Auto) 3.0, Lymph # (Auto) 2.4, [place] # (Auto) 0.2, Eos # (Auto) 0.3, Baso # (Auto) 0.1, ESR 27 11/20/21 06:30: Sodium 135 L, Potassium 3.7, Chloride 104, Carbon Dioxide 28, Anion Gap 6.7, BUN 13, Creatinine 0.70, Estimated Creat Clear 125, Estimated GFR 88, Est GFR ( Amer) 106, Glucose 97, Calcium 8.0 L, Total Bilirubin 0.3, AST 24, ALT 11 L, Alkaline Phosphatase 37 L, Troponin I < 0.01, C-Reactive Protein 17.1 H, Total Protein 6.7, Albumin 3.9, Globulin 2.8, Albumin/Globulin Ratio 1.4, Procalcitonin < 0.030 11/20/21 06:30: Magnesium 2.0 11/20/21 06:30: Lipase 94 11/20/21 06:30: Triglycerides 418 H, Cholesterol 228 H, LDL Cholesterol Direct 70.96 L, HDL Cholesterol 65 H, Cholesterol/HDL Ratio 3.5 11/20/21 09:36: Troponin I < 0.01 11/20/21 09:52: SARS-CoV-2 (PCR) Not detected, Influenza A Untype (PCR) Not detected, Influenza Type B (PCR) Not detected I & O for Last 24 hours: Intake & Output 11/18/21 11/19/21 11/20/21 11/21/21 11:59 11:59 11:59 11:59 Weight 187 lb 6.287 oz - Constitutional no acute distress - *Routine HEENT Exam Head: Present: normocephalic Eye: Present: EOMI, PERRL ENT: Present: mucous membranes moist - *Routine Neck Exam Present: supple. Absent: lymphadenopathy - *Routine Respiratory Exam Present: CTA bilaterally - *Routine Cardiovascular Exam Present: RRR - *Routine Abdominal Exam Present: soft, normoactive bowel sounds. Absent: tenderness - *Routine Rectal Exam Rectal:: deferred - *Routine Genitalia Exam Genitalia:: deferred - *Routine Extremities Exam Absent: cyanosis, clubbing, edema - *Routine Skin Exam Present: warm. Absent: rash - *Routine Neurological Exam Present: alert, oriented X3 Hospital Course Hospital Course: Patient was admitted, ruled out for CA by enzymes and EKG criteria. Her EKG abnormalities resolved after her reflux symptoms abated. Echocardiogram showed normal w
[2021-11-20 16:44] LABS: Troponin I < 0.01 ng/ml (0.00-0.034)
== END 2021-11-20 15:50 | disposition home or self-care (01) ==
LOC: ER 09:26 → 2ND 09:32 → OB 10:27
PROVIDERS: Admitting Provider Internal Medicine Adolescent Medicine; Emergency Provider Emergency Medicine; PCP Internal Medicine Adolescent Medicine; Visit Provider Internal Medicine Adolescent Medicine
DX: R07.9 Chest pain, unspecified (principal); K21.9 Gastro-esophageal reflux disease without esophagitis; G43.909 Migraine, unspecified, not intractable, without status migrainosus; E78.5 Hyperlipidemia, unspecified; Z79.890 Hormone replacement therapy; Z79.899 Other long term (current) drug therapy
CPT/HCPCS: 71046; 78452; 80053; 80061; 83690; 83735; 84145; 84484; 85025; 85651; 86140; 93005; 93017; 93306; 96365; 96375; 99284; A9502; C9803; G0378; J2405; U0003; U0005

== ENCOUNTER → 2021-12-06 07:05 | Outpatient (CLI) | payer BC, SELFPAY ==
[2021-12-06 07:32] LABS: Basophils # 0.1 K/mm3 (0-0.2); Eosinophils # 0.2 K/mm3 (0.0-0.4); Eosinophils % 4.9 % (0.1-12.0); Hematocrit 42.4 % (37.0-47.0); Hemoglobin 13.4 g/dL (12.2-16.2); Mean Corpuscular HGB Conc 31.6 g/dL (31.8-35.4); Mean Corpuscular Hemoglobin 29.2 pg (27.0-31.2); Mean Corpuscular Volume 92.6 fl (81-99); Mean Platelet Volume 11.2 fl (7.4-10.4); Monocytes # 0.2 K/mm3 (0.1-1.0); Monocytes % 4.4 % (1.7-9.3); Neutrophils # 2.3 K/mm3 (1.8-7.8); Neutrophils % 47.5 % (37.0-80.0); Platelet Count 215 K/mm3 (142-424); Red Blood Count 4.58 M/mm3 (4.20-5.40); Red Cell Distribution Width 13.4 % (11.5-17.5); White Blood Count 4.9 K/mm3 (4.8-10.8)
[2021-12-06 08:21] LABS: Alanine Aminotransferase 15 U/L (12-78); Albumin Level 4.3 g/dl (3.5-5.0); Albumin/Globulin Ratio 1.6 (1.1-1.8); Alkaline Phosphatase 30 U/L (38-126); Anion Gap 12.3 mEq/L (5-15); Aspartate Amino Transferase 26 U/L (14-36); Bilirubin,Total 0.3 mg/dl (0.2-1.3); Blood Urea Nitrogen 15 mg/dl (7-17); Calcium 9.3 mg/dl (8.4-10.2); Carbon Dioxide 29 mmol/L (22.0-30.0); Chloride 102 mmol/L (98-107); Chol/HDL Ratio 4.5 (1-3.5); Cholesterol 288 mg/dl (140-200); Estimated Glomerular Filt Rate 75 ml/min (>60); GFR (African American) 91 ML/MIN (>60); Globulin 2.7 g/dL (1.3-3.2); Glucose 104 mg/dl (74-100); HDL Cholesterol 64 mg/dl (40-60); Potassium 4.3 mmoL/L (3.5-5.1); Sodium 139 mmol/L (136-145); Triglycerides 355 mg/dl (30-150); VLDL Cholesterol 71 mg/dL (0-40)
[2021-12-06 08:32] LABS: Direct LDL Cholesterol 91.53 mg/dL (100-129)
[2021-12-06 08:36] LABS: 25-OH Vitamin D, Total 39.2 ng/mL (30-100)
[2021-12-06 08:51] LABS: Thyroid Stimulating Hormone 1.02 uIU/mL (0.465-4.68)
[2021-12-06 09:09] LABS: Vitamin B12 309 pg/mL (239-931)
[2021-12-06 17:26] LABS: Hemoglobin A1C 5.5 % (4.0-6.0)
[2021-12-07 16:15] LABS: Treponema pallidum Ab (FTA-ABS Non Reactive (Non Reactive)
== END ==
PROVIDERS: Visit Provider Internal Medicine Adolescent Medicine
DX: R07.9 Chest pain, unspecified (principal); R73.03 Prediabetes; G60.9 Hereditary and idiopathic neuropathy, unspecified
CPT/HCPCS: 36415; 80053; 80061; 82306; 82607; 83036; 84443; 85025; 86780

== ENCOUNTER → 2022-02-06 13:39 | Outpatient (CLI) | payer BC, SELFPAY ==
--- NOTE | 2022-02-06 13:55 | MR_ITS ---
FINAL REPORT CLINICAL HISTORY: NEUROPATHY, LUMBOSCACRAL. numbness, tingling and pain bilateral legs and feet [id number]. no injury or trauma. FINDINGS: Multiplanar MR imaging of the lumbar spine was performed without contrast. On the sagittal T2-weighted images, degeneration is seen at several levels. There is no evidence of fracture. No bony mass is identified. The conus has an unremarkable appearance. No significant canal stenosis is identified. L1-2: No significant central canal stenosis or neuroforaminal narrowing. L2-3: An annular bulge is present. Facet arthropathy and osteophytes present. No significant central canal stenosis or neuroforaminal narrowing. L3-4: No significant central canal stenosis or neuroforaminal narrowing. L4-5: No significant central canal stenosis or neuroforaminal narrowing. L5-S1: Facet arthropathy is present. No significant central canal stenosis or neuroforaminal narrowing. IMPRESSION: Degenerative disc disease as above. Reviewed, Interpreted and Dictated by Bipin Arguelles III, MD Transcribed by Nan Hightower Authenticated by Bipin Arguelles III, MD on 02/06/2022 04:26:[address] [facility]
== END ==
PROVIDERS: PCP Internal Medicine Adolescent Medicine; Visit Provider Internal Medicine Adolescent Medicine
DX: M54.17 Radiculopathy, lumbosacral region (principal)
CPT/HCPCS: 72148; 76376

== ENCOUNTER → 2022-03-21 16:26 | Outpatient (CLI) | payer BC, SELFPAY ==
--- NOTE | 2022-03-21 16:30 | MM_ITS ---
PROCEDURE INFORMATION: Exam: MG Bilateral Screening 3D Mammography Exam date and time: 03/21/2022 4:34 PM Age: 51 years old Clinical indication: Screening examination TECHNIQUE: Imaging protocol: Bilateral Screening tomosynthesis and 2D mammography including computer-aided detection (CAD) when performed. COMPARISON: No relevant prior studies available. FINDINGS: MAMMOGRAPHY: Breast composition: The breasts are heterogeneously dense, which may obscure small masses. Mass: None. Architectural distortion: None. Calcifications: No suspicious calcifications. Asymmetric density: None. Skin thickening: None. Axillary adenopathy: None. IMPRESSION: No mammographic evidence of malignancy. Annual screening is recommended unless otherwise clinically indicated. ASSESSMENT: BI-RADS Category 1: Negative
== END ==
PROVIDERS: PCP Internal Medicine Adolescent Medicine; Visit Provider Internal Medicine Adolescent Medicine
DX: Z12.31 Encounter for screening mammogram for malignant neoplasm of breast (principal)
CPT/HCPCS: 77063; 77067

== ENCOUNTER → 2022-04-26 07:33 | Outpatient (CLI) | payer BC, SELFPAY ==
--- NOTE | 2022-04-26 07:34 | CT_ITS ---
FINAL REPORT TECHNIQUE: Thin section axial images were obtained from the lung apices through the upper abdomen without contrast. This study was performed with techniques to keep radiation doses as low as reasonably achievable (ALARA). Individualized dose reduction techniques using automated exposure control or adjustment of mA and/or kV according to the patient's size were employed. CLINICAL HISTORY: pulmonary nodules COMPARISON: CT report dated October 20, 2020 FINDINGS: There is a 2 cm right paratracheal lymph node. There is no hilar or axillary lymphadenopathy. There is no pleural or pericardial effusion. There is a pleural based 4 mm nodule in the left lower lobe on image 66. The lungs are otherwise clear. Limited, unenhanced evaluation of the upper abdomen is without acute abnormality. There is no acute osseous abnormality. IMPRESSION: 4 mm left lower lobe nodule. Prior images are not available. This could be stable as compared to the prior report. Borderline right paratracheal lymphadenopathy. Reviewed, Interpreted and Dictated by Alissa Mckeon MD Transcribed by Shelton Lui Authenticated and [facility]
[2022-04-26 08:25] VITALS: PULSE 60; PULSE 68
== END ==
PROVIDERS: PCP Internal Medicine Adolescent Medicine; Visit Provider Internal Medicine Pulmonary Disease
DX: R91.8 Other nonspecific abnormal finding of lung field (principal)
CPT/HCPCS: 71250; 94060; 94618; 94640; 94727; 94729

== ENCOUNTER → 2022-05-09 07:06 | Outpatient (CLI) | payer BC, SELFPAY ==
[2022-05-09 08:16] LABS: Erythrocyte Sedimentation Rate 15 mm/hr (0-30)
[2022-05-09 08:57] LABS: C-Reactive Protein 18.3 mg/L (0-4)
--- NOTE | 2022-05-09 12:53 | US_ITS ---
FINAL REPORT CLINICAL HISTORY: .COLD FEET TETE,SOME LEG PAIN WITH WALKING A LONG PERIOD FINDINGS: ANKLE-BRACHIAL PRESSURE INDICES Pressure indices are as follows: RIGHT LOWER EXTREMITY: Ankle-brachial pressure index: 1.11 Comments: Normal LEFT LOWER EXTREMITY: Ankle-brachial pressure index: 1.16 Comments: Normal CONCLUSION: No evidence of significant obstructive peripheral vascular disease of the lower extremities Reviewed, Interpreted and Dictated by Bipin Arguelles III, MD Transcribed by Zoë Longoria Authenticated and [facility]
[2022-05-10 08:15] LABS: HIV Screen 4th Generation wRfx Non Reactive (Non Reactive)
[2022-05-10 14:11] LABS: Anti-Centromere B Antibodies <0.2 AI (0.0-0.9); Anti-DNA (DS) Ab Qn 1 IU/mL (0-9); Anti-Jo-1 <0.2 AI (0.0-0.9); Anti-Smith Antibody <0.2 AI (0.0-0.9); Antichromatin Antibodies <0.2 AI (0.0-0.9); Antiscleroderma-70 Antibodies <0.2 AI (0.0-0.9); RNP Antibodies <0.2 AI (0.0-0.9); Sjogren's Anti-SS-A <0.2 AI (0.0-0.9); Sjogren's Anti-SS-B <0.2 AI (0.0-0.9)
[2022-05-26 17:28] LABS: Hep A Ab, IgM Negative; Hepatitis B Surface Antigen Negative; Hepatitis C Antibody 0.2
[2022-05-26 17:29] LABS: Hepatitis B Core Antibody IgM Negative
== END ==
PROVIDERS: PCP Internal Medicine Adolescent Medicine; Visit Provider Nurse Practitioner Family
DX: G43.009 Migraine without aura, not intractable, without status migrainosus (principal); G60.9 Hereditary and idiopathic neuropathy, unspecified; G62.9 Polyneuropathy, unspecified; R20.0 Anesthesia of skin; M79.604 Pain in right leg; M79.605 Pain in left leg; Z11.4 Encounter for screening for human immunodeficiency virus [HIV]
CPT/HCPCS: 36415; 80074; 85651; 86140; 86225; 86235; 86703; 93923; G0432

== ENCOUNTER → 2022-05-15 09:53 | Outpatient (POV) | payer BC, SELFPAY ==
[2022-05-15 10:01] VITALS: BP 132/87; PULSE 80; RESP 20; O2SAT 97; BMI 28.1
--- NOTE | 2022-05-15 14:17 | HMH.PMCON ---
Assessment and Plan (1) Neuropathy Status: Acute Category: Medical Code(s): G62.9 - Polyneuropathy, unspecified (2) Numbness and tingling of both feet Status: Acute Category: Medical Code(s): R20.0 - Anesthesia of skin; R20.2 - Paresthesia of skin (3) Low back pain Status: Acute Category: Medical Code(s): M54.50 - Low back pain, unspecified (4) Degenerative disc disease, lumbar Status: Acute Category: Medical Code(s): M51.36 - Other intervertebral disc degeneration, lumbar region (5) Lumbar radiculopathy Status: Acute Category: Medical Code(s): M54.16 - Radiculopathy, lumbar region - Assessment and plan all Dx Assessment and Plan for all problems:: Patient has chronic low back pain with newly diagnosed neuropathy and bilateral feet. I have discussed with the patient regarding trying an epidural steroid injection. Risk and benefits were discussed with the patient. She would like to proceed forward with the injection. She is not currently on any blood thinners. I have also discussed with her regarding a possible referral to orthopedics for a brace to help with her neuropathy. At this time we wait until after the injection and reevaluate her symptoms. I will order the patient a compounding cream at today's visit. The patient will be scheduled for a lumbar epidural steroid injection at L2-L3. Patient has been instructed to contact the clinic with any concerns before the next appointment. Dr. Sylvester has reviewed this note and agrees with this plan of care. This note was dictated using voice recognition software and make contain errors or omissions. HPI - Data of Consult Patient: new to practice Consult date: 05/15/22 Requesting Physician: Qiana Valencia APRN Primary Care Provider: Mickey Cash MD Family Provider: Ernestina Givens - Consult Narrative Reason for consult: Neuropathy of bilateral extremities, low back pain History of present illness: Ms. Hudson is a 51 year old female who presents as a new patient today. She is a referral from Ernestina Givens APRN. Patient rates her pain today a 5 out of 10. Patient states that this pain is all in her bilateral lower extremities and describes it as a numbness, tingling sensation. She does state that she does have low back pain that is chronic. Patient denies any new trauma or injury to the site. Patient states that the neuropathy in her feet began in October. Patient states she had an EMG report that diagnosed her with bilateral fibular neuropathy. She does currently see physical therapy. She states this does provide minimal improvement. She is also tried [id number] capsaicin cream with no improvement of symptoms. Patient has also tried [id number] Tylenol and ibuprofen with minimal relief. Patient states that she has been managed with gabapentin 300 mg 3 times a day by Dr. Cash. She was started on Cymbalta. Patient denies any side effects from these medications. Patient states they are providing moderate improvement of her symptoms. Her Austin is [phone]. It has been reviewed and appropriate. CC: Qiana Valencia APRN [facility] History I have reviewed the patient's past medical history: Yes Medical History: Reports:: Asthma, Hyperlipidemia, Migraine Denies:: Cancer, Diabetes Mellitus Type 1, Diabetes Mellitus Type 2, Internal Pacemaker, MRSA *Have you ever received a pneumonia vaccine?: No *Have you received a flu vaccine this season?: Yes Other Medical History: Reports: Other Laterality Cases: Bilateral: Tonsillectomy Other Surgeries: Yes: Appendectomy, Cholecystectomy, Hysterectomy-Total, Hysterectomy-Partial. No: Pacemaker Amputation: No Fractures: No - *Social History Smoking Status: Former smoker Alcohol Intake: never Substance Use Type: denies use *Occupational Status:: employed Housing: house Household Members: spouse *Travel in the last 8 weeks: None Family Hx:: No significant family history Review of
== END ==
PROVIDERS: PCP Internal Medicine Adolescent Medicine; Visit Provider Nurse Practitioner Family
DX: M51.16 Intervertebral disc disorders with radiculopathy, lumbar region (principal); G62.9 Polyneuropathy, unspecified; R20.0 Anesthesia of skin; R20.2 Paresthesia of skin
CPT/HCPCS: 99202; G0463

== ENCOUNTER 2022-05-29 08:27 | Day surgery (SDC) | payer BC, SELFPAY ==
[2022-05-29 08:34] VITALS: BP 125/84; BP 134/95; PULSE 71; PULSE 75; RESP 20; TEMP 37.1; O2SAT 97; BMI 28.1
[2022-05-29 08:47] VITALS: BP 143/102; PULSE 77; RESP 18; O2SAT 98
[2022-05-29 08:48] VITALS: BP 146/93; PULSE 77; RESP 18
--- NOTE | 2022-05-29 08:57 | P.PCN_ITS ---
Procedure Date: 05/29/22 Time: 08:59 Anesthesiologist:: Ariel Burch CRNA Complications:: None Pre-procedure Diagnosis:: Degenerative disc disease lumbar spine. Disc bulge at L2-3. Post-procedure Diagnosis:: Same Indications for Procedure:: This patient is a pleasant 51-year-old female. Patient complains of bilateral leg hypersensitivity she describes as painful to touch at times. Pain bilaterally to the knee and ankle at times. She describes low back pain is minimal. Procedure Details:: Procedure: Lumbar epidural steroid injection under fluoroscopy Informed consent was obtained and the risks and benefits of the procedure were e xplained to the patient. The patient was taken to the procedure room and noninvasive monitors placed, including noninvasive blood pressure cuff and pulse oximeter. The back was viewed using C-arm Fluoroscopy and prepped using Betadine as a cleansing solution and the L4-L5 interspace was palpated. Skin and subcutaneous tissues were anesthetized using lidocaine 1.5% and a 25-gauge needle. After this, an 18-gauge Touhy epidural needle was placed into the L2-3 interspace and advanced using fluoroscopic guidance and loss of resistance to air until the epidural space was encountered. After confirmation of needle placement in the epidural space, with dye, a solution containing lidocaine 1.5%, 4 mL and Depo-Medrol 80 mg were incrementally injected into the lumbar epidural space. The patient tolerated the procedure well with no complications. The patient was observed in the Pain Clinic and then discharged home neurologically intact. Plan and Disposition:: Patient was discharged without incident.
== END 2022-05-29 09:08 | disposition home or self-care (01) ==
PROVIDERS: PCP Internal Medicine Adolescent Medicine; Visit Provider Nurse Anesthetist, Certified Registered
DX: M51.36 Other intervertebral disc degeneration, lumbar region (principal)
CPT/HCPCS: 62323; J1040

== ENCOUNTER → 2022-06-14 09:34 | Outpatient (POV) | payer BC, SELFPAY ==
[2022-06-14 10:13] VITALS: BP 120/80; PULSE 69; RESP 18; TEMP 37.2; O2SAT 99; BMI 27.6
--- NOTE | 2022-06-14 10:32 | EXP.PAIN.SOA ---
[facility] Pain Management SOAP Note Subjective:: Patient is a pleasant 51-year-old female who presents today for follow-up of lumbar epidural steroid injection at L 2 through L3 on 05/29/2022. We are currently treating the patient for degenerative disc disease of her lumbar spine, disc bulge. Today the patient states that she had had significant improvement of her symptoms following this injection. She states at least 50% relief however she does feel like it has worn off at this point. She states she did feel like the injection helped dull her pain symptoms. Today she rates her pain a 0 out of 10. She states following this injection she was able to increase her activity and ADLs. Patient is currently prescribed gabapentin 300 mg 3 times a day by Dr. Cash's office. Patient denies any side effects from this medication. She states this medication does adequately manage her pain symptoms. She is also prescribed compounding cream that she states does help improve her symptoms. Her Austin is [phone]. It has been reviewed and appropriate. Review of Systems: General: No recent weight changes, no fever, no sleep disturbances Respiratory: No cough, no shortness of air, no recurring pulmonary infections Cardiovascular/peripheral vascular: No chest pain, no palpitations, no edema, no shortness of breath Gastrointestinal: No new onset incontinence, normal bowel movements reported Genitourinary: No new onset incontinence Musculoskeletal: Low back pain Psychiatric: [Normal mood/affect] Neurological: [Denies weakness in extremities], [denies balance issues] Objective:: Physical Exam: General: Alert and oriented x3, no acute distress, pleasant and cooperative Lungs: Respirations even and unlabored, symmetrical chest expansion Eyes: PERRL Musculoskeletal: Flexion and extension of lumbar [spine] somewhat guarded secondary to pain, [antalgic gait noted] Neurological: Speech clear, no gross sensory deficit Assessment:: Degenerative disc disease of lumbar spine, disc bulge Plan:: Patient has had significant improvement following her lumbar epidural injection. At this time she does not need additional injective therapy. We will follow-up with the patient in 1 month. Patient will return to clinic in 1 month for reevaluation of symptoms. Patient has been instructed to contact the clinic with any concerns before the next appointment. Dr. Sylvester has reviewed this note and agrees with this plan of care. This note was dictated using voice recognition software and make contain errors or omissions. PFSH PFSH Social History Smoking Status: Former smoker alcohol intake: never substance use type: denies use current occupational status: employed Travel in the last 8 weeks: None household members: spouse housing: house number of children: 2 caffeine: No
== END ==
PROVIDERS: PCP Internal Medicine Adolescent Medicine; Visit Provider Nurse Practitioner Family
DX: M51.36 Other intervertebral disc degeneration, lumbar region (principal); Z79.899 Other long term (current) drug therapy
CPT/HCPCS: 99212; G0463

== ENCOUNTER → 2022-07-18 07:20 | Outpatient (CLI) | payer BC, SELFPAY ==
[2022-07-18 09:32] LABS: Free T4 (Free Thyroxine) 1.12 ng/dl (0.78-2.19)
[2022-07-18 09:47] LABS: Thyroid Stimulating Hormone 1.76 uIU/mL (0.465-4.68)
== END ==
PROVIDERS: PCP Internal Medicine Adolescent Medicine; Visit Provider Nurse Practitioner Family
DX: Z01.89 Encounter for other specified special examinations (principal); Z79.899 Other long term (current) drug therapy
CPT/HCPCS: 36415; 84439; 84443

== ENCOUNTER → 2022-08-02 09:29 | Outpatient (POV) | payer BC, SELFPAY ==
--- NOTE | 2022-08-02 09:43 | EXP.PAIN.SOA ---
[facility] Pain Management SOAP Note Subjective:: Patient is a pleasant 51-year-old female who presents today for follow-up. We are currently treating the patient for degenerative disc disease of lumbar spine, disc bulge,. Today the patient rates her pain a 0 out of 10. Patient denies any new trauma or injury. She denies any change location or type of pain she experiences. Patient has had 1 injection in the past that did provide at least 50% relief however only lasted short-term. Patient is currently prescribed gabapentin 300 mg 3 times a day by Dr. Bowden's office. Patient states she does occasionally have more brain fog and feeling groggy with this medication however she only takes it twice a day. Patient states recently around April she was only taking it once a day and then she quit altogether however she experienced significant pain and has since started back this medication. Patient is currently prescribed compounding cream that she states does provide some additional improvement however she typically can only apply it once a day due to her work schedule. Her Austin is [phone]. It has been reviewed and appropriate. Review of Systems: General: No recent weight changes, no fever, no sleep disturbances Respiratory: No cough, no shortness of air, no recurring pulmonary infections Cardiovascular/peripheral vascular: No chest pain, no palpitations, no edema, no shortness of breath Gastrointestinal: No new onset incontinence, normal bowel movements reported Genitourinary: No new onset incontinence Musculoskeletal: Low back pain Psychiatric: [Normal mood/affect] Neurological: [Denies weakness in extremities], [denies balance issues] Objective:: Physical Exam: General: Alert and oriented x3, no acute distress, pleasant and cooperative Lungs: Respirations even and unlabored, symmetrical chest expansion Eyes: PERRL Musculoskeletal: Flexion and extension of lumbar [spine] somewhat guarded secondary to pain, [antalgic gait noted] Neurological: Speech clear, no gross sensory deficit Assessment:: Degenerative disc disease of lumbar spine with lumbar radiculopathy symptoms, disc bulge Plan:: Patient is doing well today at her visit and not requiring any additional injective therapy or medication refills. We will follow-up with the patient in 3 months. I have discussed with the patient regarding having repeat epidural in the future if her pain worsens. Patient will return to clinic in 3 months for follow-up and reevaluation of symptoms. Patient has been instructed to contact the clinic with any concerns before the next appointment. Dr. Sylvester has reviewed this note and agrees with this plan of care. This note was dictated using voice recognition software and make contain errors or omissions. PFSH PFSH Social History Smoking Status: Former smoker alcohol intake: never substance use type: denies use current occupational status: employed Travel in the last 8 weeks: None household members: spouse housing: house number of children: 2 caffeine: No
[2022-08-02 09:50] VITALS: BP 116/68; PULSE 71; RESP 18; TEMP 36.6; O2SAT 99; BMI 27.9
== END ==
PROVIDERS: PCP Radiology Diagnostic Radiology; Visit Provider Nurse Practitioner Family
DX: M51.16 Intervertebral disc disorders with radiculopathy, lumbar region (principal)
CPT/HCPCS: 99212; G0463

== ENCOUNTER → 2022-09-17 09:10 | Outpatient (CLI) | payer BC, SELFPAY ==
[2022-09-17 09:27] LABS: Basophils # 0.1 K/mm3 (0-0.2); Basophils % 1.4 % (0.1-2.0); Eosinophils # 0.3 K/mm3 (0.0-0.4); Eosinophils % 5.7 % (0.1-12.0); Hematocrit 40.1 % (37.0-47.0); Hemoglobin 12.9 g/dL (12.2-16.2); Lymphocytes # 1.5 K/mm3 (0.7-4.5); Lymphocytes % 25.5 % (10-50); Mean Corpuscular HGB Conc 32.1 g/dL (31.8-35.4); Mean Corpuscular Volume 93.3 fl (81-99); Mean Platelet Volume 8.6 fl (7.4-10.4); Monocytes # 0.2 K/mm3 (0.1-1.0); Neutrophils # 3.6 K/mm3 (1.8-7.8); Neutrophils % 63.3 % (37.0-80.0); Platelet Count 395 K/mm3 (142-424); Red Cell Distribution Width 13.3 % (11.5-17.5); White Blood Count 5.7 K/mm3 (4.8-10.8)
[2022-09-17 10:07] LABS: Alanine Aminotransferase 12 U/L (12-78); Albumin Level 4.1 g/dl (3.5-5.0); Albumin/Globulin Ratio 1.6 (1.1-1.8); Alkaline Phosphatase 37 U/L (38-126); Anion Gap 10.1 mEq/L (5-15); Aspartate Amino Transferase 23 U/L (14-36); Bilirubin,Total 0.3 mg/dl (0.2-1.3); Blood Urea Nitrogen 14 mg/dl (7-17); Calcium 9.6 mg/dl (8.4-10.2); Carbon Dioxide 31 mmol/L (22.0-30.0); Chloride 102 mmol/L (98-107); Estimated Glomerular Filt Rate 65 ml/min (>60); GFR (African American) 79 ML/MIN (>60); Globulin 2.6 g/dL (1.3-3.2); Glucose 98 mg/dl (74-100); Potassium 4.1 mmoL/L (3.5-5.1); Sodium 139 mmol/L (136-145); Total Protein,Serum 6.7 g/dl (6.3-8.2)
[2022-09-17 10:55] LABS: Vitamin B12 626 pg/mL (239-931)
[2022-09-20 13:02] LABS: Vitamin B6 26.9 ug/L (3.4-65.2)
== END ==
PROVIDERS: PCP Internal Medicine Adolescent Medicine; Visit Provider Internal Medicine Adolescent Medicine
DX: G60.9 Hereditary and idiopathic neuropathy, unspecified (principal); E53.8 Deficiency of other specified B group vitamins
CPT/HCPCS: 36415; 80053; 82607; 84207; 85025

== ENCOUNTER 2023-01-09 11:27 | Emergency (ER) | payer BC, SELFPAY ==
[2023-01-09 11:30] VITALS: BP 138/79; PULSE 78; RESP 21; TEMP 36.5; O2SAT 99; BMI 28.1
--- NOTE | 2023-01-09 11:46 | EXP.UTC ---
Discharge Plan Disposition Patient Disposition: Home, Self-Care Condition: Good Prescriptions Prescriptions: New ondansetron 4 mg Tablet,Disintegrating 4 mg PO Q8H PRN (Reason: Nausea) Qty: 20 0RF No Action estradiol 1 mg tablet 1 mg PO DAILY Qty: 30 11RF gabapentin 300 mg capsule 300 mg PO TID Label Comments: TAKE 1 CAPSULE BY MOUTH THREE TIMES DAILY montelukast 10 MG tablet 10 mg PO PM pantoprazole 40 MG tablet,delayed release (DR/EC) 40 mg PO BID amitriptyline [Elavil] 10 mg Tablet 10 mg PO DAILY Referrals Follow up/Referrals: Mickey Cash MD [Primary Care Provider] - See instructions Activity Restrictions/Add. Instructions Additional Instructions/Restrictions: Drink plenty of fluids. Take tylenol for pain or fever. Take the zofran as directed for nausea/vomiting. Drink an electrolyte solution (like pedialyte, gatorade, etc) to replace the electrolytes you are losing through the diarrhea. Follow up with your regular doctor. GO TO THE ER FOR ANY WORSENING SYMPTOMS Clinical Impressions Clinical Impression: Gastroenteritis Stand Alone Forms Stand Alone Forms: Work/School Release Instructions Patient Instructions: DI for Viral Gastroenteritis -- Adult, Ondansetron Discharge ED Provider: Timbo Cota [facility] General Stated complaint: Vomiting, nausea, diarrhea Mode of Arrival: Ambulatory Source of Information: Patient Limitations: No Limitations Time Seen by Provider: 01/09/23 11:32 Description of Symptoms (Recalled from Triage Doc. by RN): PATIENT C/O NAUSEA, VOMITING, AND DIARRHEA SINCE SATURDAY. RECENTLY EXPOSED TO STOMACH VIRUS HEENT Symptoms (Recalled from RN notes): No Resp Symptoms (Recalled from RN notes): No Skin Symptoms (Recalled from RN notes): No MS Symptoms (Recalled from RN notes): No Functional Status (Recalled from RN notes): WNL History of Present Illness Provider Complaint: She states that for the past 2 days she has had n/v/d. She states that she has not vomited since yesterday, but she has continued to have diarrhea and nausea. Related Data Home Medications Medication Instructions Recorded Confirmed montelukast 10 mg tablet 10 mg PO PM Allergy symptoms 10/23/20 01/09/23 gabapentin 300 mg capsule 300 mg PO TID NEUROPATHY 03/01/22 01/09/23 pantoprazole 40 mg tablet,delayed 40 mg PO BID GERD 05/15/22 01/09/23 release amitriptyline 10 mg tablet 10 mg PO DAILY NEUROPATHY 01/09/23 01/09/23 Previous Rx's Medication Instructions Recorded estradiol 1 mg tablet 1 mg PO DAILY hormone replacement 11/20/22 #30 tabs ondansetron 4 mg disintegrating 4 mg PO Q8H PRN Nausea #20 tabs 01/09/23 tablet Allergies Allergy/AdvReac Type Severity Reaction Status Date / Time No Known Allergies Allergy Verified 11/20/22 08:29 Worker's Comp Is this a Worker's Comp case?: No [facility] Disclaimer: The information contained in this section may have been updated after the patient was seen, as this information can be updated by other users. Medical History Anxiety Hx of migraines Neuropathy Surgical History History of hysterectomy Family History Other Cancer Thyroid disorder Social History Smoking Status: Former smoker alcohol intake: never substance use type: denies use current occupational status: employed Travel in the last 8 weeks: None household members: spouse housing: house number of children: 2 caffeine: No ROS Obtained: Yes All systems reviewed & no additional complaints except as documented Constitutional Constitutional: Denies chills, Denies fever(s) and Reports poor appetite ENT Ears, Nose, Mouth, and Throat: Denies dizziness and Denies sore throat Cardiovascular Card
[2023-01-09 13:20] VITALS: BP 138/79; PULSE 78; RESP 21; TEMP 36.5; O2SAT 99
== END 2023-01-09 13:24 | disposition home or self-care (01) ==
PROVIDERS: Emergency Provider Nurse Practitioner Family; PCP Internal Medicine Adolescent Medicine
DX: K52.9 Noninfective gastroenteritis and colitis, unspecified (principal); R11.2 Nausea with vomiting, unspecified; Z87.891 Personal history of nicotine dependence
CPT/HCPCS: 96360; 99212; 99214; G0463

== ENCOUNTER → 2023-02-19 06:36 | Outpatient (CLI) | payer BC, SELFPAY ==
--- NOTE | 2023-02-19 | CA_ITS ---
APPROVED REPORT Exam: Exercise Treadmill Technologist: Anupama Blevins, Ht: 5 ft 8 in Wt: 189 lbs BSA: 1.99 m2 HR: 61 bpm BP: 124/83 mmHg Rhythm: NSR, low voltage QRS, PAC Medical History Medications: Gabapentin,,,,, Pantoprazole,,,,, Estradiol,,,,, Montelukast,,,,, AmiTRIPTYLINE,,,,, Escitalopram Oxalate,,,,, Vit D2,,,,, RImegapant,,,,, AJOVY,,,,, Magnesium hydroxide,,,,, Cardiac Risk Factors: Smoking Stress Test Details Test: Susanna HR Resting HR: 85 bpm Max Heart Rate (APMHR): 166 bpm Max HR Achieved: 144 bpm Target HR (85% APMHR): 141 bpm % of APMHR: 87 Recovery HR: 114 bpm BP Resting BP: 129/81 mmHg Max BP: 152/80 mmHg Recovery BP: 132.0/84.0 mmHg BP response to stress: Normal blood pressure response to stress. ECG Resting ECG: NSR, low voltage QRS, PAC Stress ECG: Sinus tachycardia, 1mm ST depression Recovery ECG: NSR, improvement in the ST depression Clinical Exercise duration: 07:30 min Highest Stage Achieved: Exercise capacity: 10.1 METs Stress ECG Conclusion During susanna protocol, pt walked 7:30 minutes. No CP noted. Good exercise capacity for age and sex with normal HR and BP response to exercise. Rare PVCs were present during stress. Rare ventricular couplet. 1mm of horizontal and downsloping ST depression inferiorly and 1mm horizontal ST depression laterally. Equivocal EKG changes for ischemia. Myoview images reported separately. Test Summary REST . . . . . . . Sitting REST . . . . . . . Standing REST 04:46 0.0 0.0 85 . 129/ 81 . . Stage 1 01:00 10.0 1.7 108 . . . . Stage 1 02:00 10.0 1.7 118 . . . . Stage 1 03:00 10.0 1.7 121 . 138/ 82 . . Stage 2 01:00 12.0 2.5 125 . . . . Stage 2 02:00 12.0 2.5 133 . . . . Stage 2 03:00 12.0 2.5 136 . 152/ 80 . . Stage 3 01:00 14.0 3.4 142 . . . . Stage 3 01:30 14.0 3.4 144 . . . Stop exercise at 07:30 RECOVERY 01:00 0.0 0.0 117 . . . . RECOVERY 02:00 0.0 0.0 76 . 132/ 84 . . RECOVERY 03:00 0.0 0.0 71 . 140/ 84 . . RECOVERY 04:00 0.0 0.0 74 . 140/ 84 . . RECOVERY 05:00 0.0 0.0 66 . 132/ 81 . . RECOVERY 05:17 0.0 0.0 66 . 132/ 81 . . Electronically signed by : Vanessa Mendoza, 02/19/2023 18:06:32
--- NOTE | 2023-02-19 07:00 | NM_ITS ---
APPROVED REPORT Exam: Nuclear Stress Test Indication: HYPERLIPIDEMIA, FM HX, C.P., SOB Patient Location: Outpatient Stress Tech: Anupama Blevins [place] Tech:Mira Alonso BERENICE RT (R)(N)(M) Ht: 5 ft 8 in Wt: 185 lbs Bra Size: 38C HR: 85 bpm BP: 129/81 mmHg BSA: 1.98 m2 TID: 1.33 BMI: 28.1 History: HYPERLIPIDEMIA, FM HX, C.P., SOB Procedure: Patient exercised on Cristiano protocol 7:30 minutes and sec, resting heart rate 85 bpm, resting blood pressure 129/81 mmHg, with exercise maximum heart rate achived was 144 bpm which is 87 % of the maximum predicted heart rate and blood pressure was 152/80 mmHg. Test was stopped due to FATIGUE. Patient denied any complaint of chest pain. Patient has exercise capacity, achieved 10.1 METs of workload on treadmill, the blood pressure response to exercise was . Cardiac Stress and Resting SPECT Images: Cardiac Stress and Resting SPECT images were obtained using technetium 99m Myoview 31.0 mCi stress and 10.53 mCi at rest. Resting and stress imaging demonstrate no evidence of fixed or reversible perfusion defects. Of note, however, there is a high transient ischemic dilatation ratio (TID=1.33) which may be suggestive of balanced ischemia or multivessel disease. Gated imaging demonstrates a normal global and regional LV systolic function. LVEF is calculated at 63%. Conclusion: No evidence of fixed or reversible perfusion defects. High transient ischemic dilatation ratio (TID=1.33) which may be suggestive of balanced ischemia or multivessel disease. Gated imaging demonstrates a normal global and regional LV systolic function. LVEF is calculated at 63%. Electronically signed by : Vanessa Mendoza, 02/19/2023 18:17:50
== END ==
LOC: RAD 06:36
PROVIDERS: PCP Internal Medicine Adolescent Medicine; Visit Provider Internal Medicine Adolescent Medicine
DX: R07.9 Chest pain, unspecified (principal)
CPT/HCPCS: 78452; 93017; A9502

== ENCOUNTER 2023-02-22 09:50 | Day surgery (SDC) | payer BC, SELFPAY ==
[2023-02-22] VITALS (11 sets, daily range): BP systolic 100–127; BP diastolic 60–88; PULSE 52–75; RESP 15–20; O2SAT 94–100; BMI 28.5
--- NOTE | 2023-02-22 07:07 | IR_ITS ---
APPROVED REPORT Patient Location: Outpatient PROCEDURES Left heart catheterization Left ventriculogram Selective coronary INDICATION Abnormal Myoview, Angina pectoris Informed consent was obtained prior to the procedure. COMPLICATIONS None Estimated Blood Loss: Less than 10 ml TECHNIQUE One percent lidocaine used to anesthetize the right anterior aspect of the wrist. The right radial artery was accessed via the Seldinger technique. A 6 [place] sheath was placed in the right radial artery. 150 mg magnesium sulfate, 800 mcg of nitroglycerin, 1mg Lidocaine and 5000 U Heparin were given through the arterial sheath. The papa catheter was also used to perform left heart catheterization, left ventriculogram and selective coronary angiogram. At the end of the procedure the sheath was removed good hemostasis was achieved using Traclet band, patient was transferred to the postop holding area in stable condition. ANGIOGRAPHIC RESULTS The left main artery Normal The left anterior descending artery Normal The circumflex artery Normal The right coronary artery Dominant normal The GILBERT ventriculogram reveals Normal 65% The left ventricular end-diastolic pressure 15 mmHg IMPRESSION Normal coronary arteries Normal ejection fraction Borderline LVEDP PLAN 1. Medical management Electronically signed by : Gio Rojas MD 02/22/2023 12:36:47
[2023-02-22 10:21] LABS: Chloride 100 mmol/L (98-107)
[2023-02-22 10:22] LABS: Potassium 3.8 mmoL/L (3.5-5.1); Sodium 138 mmol/L (136-145)
[2023-02-22 10:24] LABS: Basophils # 0.1 K/mm3 (0-0.2); Basophils % 1.1 % (0.1-2.0); Blood Urea Nitrogen 9 mg/dl (7-17); Creatinine Clearance Estimated 96 mL/min (50-200); Eosinophils # 0.3 K/mm3 (0.0-0.4); Eosinophils % 4.7 % (0.1-12.0); Estimated Glomerular Filt Rate 65 ml/min (>60); GFR (African American) 79 ML/MIN (>60); Hematocrit 41.1 % (37.0-47.0); Hemoglobin 13.3 g/dL (12.2-16.2); Lymphocytes # 2.1 K/mm3 (0.7-4.5); Lymphocytes % 33.1 % (10-50); Mean Corpuscular HGB Conc 32.4 g/dL (31.8-35.4); Mean Corpuscular Hemoglobin 30.1 pg (27.0-31.2); Mean Corpuscular Volume 92.7 fl (81-99); Mean Platelet Volume 9.5 fl (7.4-10.4); Monocytes # 0.3 K/mm3 (0.1-1.0); Monocytes % 4.6 % (1.7-9.3); Neutrophils # 3.5 K/mm3 (1.8-7.8); Neutrophils % 56.5 % (37.0-80.0); Platelet Count 347 K/mm3 (142-424); Red Blood Count 4.43 M/mm3 (4.20-5.40); Red Cell Distribution Width 13.9 % (11.5-17.5); White Blood Count 6.2 K/mm3 (4.8-10.8)
[2023-02-22 10:25] LABS: Anion Gap 11.8 mEq/L (5-15); Calcium 9.2 mg/dl (8.4-10.2); Carbon Dioxide 30 mmol/L (22.0-30.0); Glucose 90 mg/dl (74-100)
[2023-02-22 10:27] LABS: INR 0.99 (0.9-1.1); Prothrombin Time 10.7 seconds (10.1-12.5)
== END 2023-02-22 15:27 | disposition home or self-care (01) ==
PROVIDERS: PCP Nurse Practitioner Family; Visit Provider Internal Medicine
DX: I20.8 Other forms of angina pectoris (principal); Z79.899 Other long term (current) drug therapy; Z87.891 Personal history of nicotine dependence; R06.09 Other forms of dyspnea; K21.9 Gastro-esophageal reflux disease without esophagitis; R94.31 Abnormal electrocardiogram [ECG] [EKG]; R94.39 Abnormal result of other cardiovascular function study
CPT/HCPCS: 80048; 85025; 85610; 93458; 99152; C1725; C1769; J1644; J2405; Q9967

== ENCOUNTER → 2023-03-25 16:54 | Outpatient (CLI) | payer BC, SELFPAY ==
--- NOTE | 2023-03-25 16:58 | MM_ITS ---
PROCEDURE INFORMATION: Exam: MG Bilateral Screening 3D Mammography Exam date and time: 03/25/2023 4:50 PM Age: 52 years old Clinical indication: Screening. Her mother had breast cancer. TECHNIQUE: Imaging protocol: Bilateral Screening tomosynthesis and 2D mammography including computer-aided detection (CAD) when performed. COMPARISON: 1. MG MM DIG SCREENING MAMM BI W/CAD 03/21/2022 4:34 PM 2. MG SCN DIG BREAST TOMOSYN GALEN 02/23/2021 7:53 AM FINDINGS: MAMMOGRAPHY: Breast composition: The breasts are heterogeneously dense, which may obscure small masses. Mass: None. Architectural distortion: None. Calcifications: No suspicious calcifications. Asymmetric density: None. Skin thickening: None. Axillary adenopathy: None. IMPRESSION: No mammographic evidence of malignancy. Annual screening is recommended unless otherwise clinically indicated. Given the reported risk factors coupled with the patient's breast density, a breast cancer risk assessment may prove useful for further evaluation. ASSESSMENT: BI-RADS Category 1: Negative
== END ==
PROVIDERS: PCP Nurse Practitioner Family; Visit Provider Nurse Practitioner Family
DX: Z12.31 Encounter for screening mammogram for malignant neoplasm of breast (principal)
CPT/HCPCS: 77063; 77067

== ENCOUNTER → 2023-05-03 15:12 | Outpatient (CLI) | payer BC, SELFPAY ==
--- NOTE | 2023-05-03 15:13 | CT_ITS ---
FINAL REPORT TECHNIQUE: Axial images were obtained from the lung apex to the mid abdomen by computed tomography. Coronal reformatted images were obtained. This study was performed with techniques to keep radiation doses as low as reasonably achievable, (ALARA). Individualized dose reduction techniques using automated exposure control or adjustment of mA and/or kV according to the patient''s size were employed. CLINICAL HISTORY: Shortness of breath COMPARISON: 04/26/2022 FINDINGS: There is no axillary adenopathy. There is no hilar or mediastinal adenopathy. Heart size is normal. There is no pericardial or pleural effusion. There is a stable 4 mm pleural-based nodule in the left lower lobe seen on image 63. There are several calcified granulomas in the right lung. Limited images of the upper abdomen are unremarkable. Postcholecystectomy. IMPRESSION: Stable 4 mm left lower lobe nodule. Reviewed, Interpreted and Dictated by Bipin Arguelles III, MD Transcribed by Luisana Rosa Authenticated and [facility]
== END ==
PROVIDERS: PCP Nurse Practitioner Family; Visit Provider Internal Medicine Pulmonary Disease
DX: R91.8 Other nonspecific abnormal finding of lung field (principal)
CPT/HCPCS: 71250

== ENCOUNTER 2023-09-20 10:29 | Emergency (ER) | payer BC, SELFPAY ==
[2023-09-20 10:35] VITALS: BP 135/84; PULSE 70; RESP 20; TEMP 36.8; O2SAT 98; BMI 26.9
--- NOTE | 2023-09-20 10:46 | EXP.UTC ---
Discharge Plan Disposition Patient Disposition: Home, Self-Care Condition: Good Prescriptions Prescriptions: New guaifenesin [Mucinex] 600 mg tablet extended release 12hr 600 mg PO BID PRN (Reason: cough) Qty: 20 0RF azithromycin [Zithromax Z-Devante] 250 mg tablet See Rx Instructions .ROUTE .COMPLEX 5 Days Qty: 6 0RF Rx Instructions: For 250 mg dose pack: take 500 mg today (day 1), then 250 mg for 4 days (days 2-5) No Action Saxenda 3 mg/0.5 mL (18 mg/3 mL) pen injector 3 mg SQ DAILY buspirone 10 mg tablet 10 mg PO TID Rx Instructions: prn albuterol 90 mcg/actuation aerosol inhalation PRN albuterol sulfate [Ventolin HFA] 90 mcg/actuation HFA aerosol inhaler 2 inh inhalation Q6H PRN (Reason: shortness of breath or wheezing) 90 Days Qty: 18 1RF estradiol 1 mg tablet 1 mg PO DAILY Qty: 30 11RF gabapentin 300 mg capsule 300 mg PO TID Patient Comments: TAKE 1 CAPSULE BY MOUTH THREE TIMES DAILY Nurtec ODT 75 mg tablet,disintegrating 75 mg PO ONCE PRN Ajovy Autoinjector 225 mg/1.5 mL auto-injector 225 mg SQ QMONTH montelukast 10 MG tablet 10 mg PO PM pantoprazole 40 MG tablet,delayed release (DR/EC) 40 mg PO BID amitriptyline 10 mg Tablet 10 mg PO DAILY Referrals Follow up/Referrals: Jorge Goetz APRN [Primary Care Provider] - See instructions Activity Restrictions/Add. Instructions Additional Instructions/Restrictions: *Monitor Temp, Over the counter Motrin or Tylenol as directed/as needed Tylenol every 4 hours and Motrin every 6 hours (as long as your family doctor has told you that you can take it) for fever or pain. and straight to ER if unable to lower temp less than 101.0 after medication given *Warm salt water gargles may help to soothe the throat *Throat Lozenges? *Warm fluids like tea with honey may help to soothe the throat? *Sleep elevated *Humidifier/Vaporizer Take medication as prescribed Follow up IMMEDIATELY for new or worsening symptoms or no Noticeable improvement over the next 48-72 hours. 911 for difficulty breathing or swallowing Clinical Impressions Clinical Impression: Sinusitis Qualifiers: Sinusitis location: unspecified location Chronicity: unspecified Qualified Code(s): J32.9 - Chronic sinusitis, unspecified Instructions Patient Instructions: Sinusitis, DI for Sinusitis Discharge ED Provider: Fiorella Escudero [facility] [place] HPI General Stated complaint: st, cough, chest congestion, fever, nausea, ba Mode of Arrival: Ambulatory Source of Information: Patient Limitations: No Limitations Time Seen by Provider: 09/20/23 10:47 Description of Symptoms (Recalled from Triage Doc. by RN): PATIENT C/O SORE THROAT, FEVER AND CONGESTION SINCE SATURDAY HEENT Symptoms (Recalled from RN notes): Yes Resp Symptoms (Recalled from RN notes): No Skin Symptoms (Recalled from RN notes): No MS Symptoms (Recalled from RN notes): No Functional Status (Recalled from RN notes): WNL History of Present Illness Provider Complaint: Patient states she has been having sinus pain and pressure and feels like she has pressure behind her eyes States that it has got worse since Sat States that today she was still not feeling well so she came in to get checked before it moved into her chest due to her throat was feeling scratchy and having drainage Related Data Home Medications Medication Instructions Recorded Confirmed montelukast 10 mg tablet 10 mg PO PM Allergy symptoms 10/23/20 09/20/23 gabapentin 300 mg capsule 300 mg PO TID NEUROPATHY 03/01/22 09/20/23 pantoprazole 40 mg tablet,delayed 40 mg PO BID GERD 05/15/22 05/07/23 release amitriptyline 10 mg tablet 10 mg PO DAILY NEUROPATHY 01/09/23 05/07/23 fremanezumab-vfrm 225 mg/1.5 mL 225 mg SQ QMONTH 02/20/23 05/07/23 subcutaneous auto-injector (Ajovy) rimegepant 75 mg disintegrating 75 mg PO ONCE PRN 02/20/23 05/07/23 tablet (
[2023-09-20 10:55] VITALS: BP 135/84; PULSE 70; RESP 20; TEMP 36.8; O2SAT 98
== END 2023-09-20 11:06 | disposition home or self-care (01) ==
PROVIDERS: Emergency Provider Nurse Practitioner; PCP Nurse Practitioner Family
DX: J01.90 Acute sinusitis, unspecified (principal); R50.9 Fever, unspecified; R51.9 Headache, unspecified; R05.9 Cough, unspecified; R07.0 Pain in throat; R09.89 Other specified symptoms and signs involving the circulatory and respiratory systems; R09.81 Nasal congestion; R09.82 Postnasal drip; R11.0 Nausea; J43.9 Emphysema, unspecified; Z87.891 Personal history of nicotine dependence
CPT/HCPCS: 96372; 99212; 99214; G0463

== ENCOUNTER 2023-10-18 12:33 | Outpatient (CLI) | payer BC, SELFPAY ==
--- NOTE | 2023-10-18 12:48 | US_ITS ---
FINAL REPORT CLINICAL HISTORY: CLAUDICATION,REST PAIN,PREVIOUS SMOKER,HLD FINDINGS: ANKLE-BRACHIAL PRESSURE INDICES Pressure indices are as follows: RIGHT LOWER EXTREMITY: Ankle-brachial pressure index: 1.0 Comments: Normal LEFT LOWER EXTREMITY: Ankle-brachial pressure index: 1.0 Comments: Normal IMPRESSION: No evidence of significant obstructive peripheral vascular disease of the lower extremities Reviewed, Interpreted and Dictated by Bipin Arguelles III, MD Transcribed by Luisana Rosa Authenticated and [facility]
== END 2023-10-18 23:59 ==
PROVIDERS: PCP Nurse Practitioner Family; Visit Provider Nurse Practitioner Family
DX: R20.2 Paresthesia of skin (principal)
CPT/HCPCS: 93923

== ENCOUNTER 2023-12-12 02:48 | Emergency (ER) | payer BC, SELFPAY ==
[2023-12-12 02:57] VITALS: PULSE 77; RESP 19; TEMP 36.5; O2SAT 99; BMI 27.3
[2023-12-12] MEDS: ACETAMINOPHEN 500MG TAB 1000 MG PO (03:22)
[2023-12-12] MEDS: LACTATED RINGERS 1000ML 1,000 ML 999 ML IV (03:22)
[2023-12-12] MEDS: KETOROLAC 30MG/ML VIAL 15 MG IV (03:23)
[2023-12-12] MEDS: DEXAMETHASONE 4MG/ML 1ML VIAL 10 MG IV (03:23)
[2023-12-12] MEDS: diphenhydrAMINE 50MG/ML VIAL 25 MG IV (03:23)
[2023-12-12] MEDS: PROCHLORPERAZINE 10MG/2ML VIAL 10 MG IV (03:24)
--- NOTE | 2023-12-12 03:45 | ED_ITS ---
Discharge Plan Disposition Patient Disposition: Home, Self-Care Prescriptions Prescriptions: No Action estradiol 1 mg tablet 1 mg PO DAILY Qty: 30 11RF gabapentin 300 mg capsule 300 mg PO TID Patient Comments: TAKE 1 CAPSULE BY MOUTH THREE TIMES DAILY Nurtec ODT 75 mg tablet,disintegrating 75 mg PO ONCE PRN (Reason: migraines) Ajovy Autoinjector 225 mg/1.5 mL auto-injector 225 mg SQ QMONTH montelukast 10 MG tablet 10 mg PO PM amitriptyline 10 mg Tablet 10 mg PO DAILY Referrals Follow up/Referrals: Jorge Goetz APRN [Primary Care Provider] - See instructions Activity Restrictions/Add. Instructions Additional Instructions/Restrictions: You were evaluated in the emergency department today. Please follow-up closely with your primary care provider. Return to the emergency department for new or worsening symptoms. Clinical Impressions Clinical Impression: Migraine Stand Alone Forms Stand Alone Forms: Work/School Release Instructions Patient Instructions: DI for Migraine Discharge ED Provider: Qiana Dave General Adult HPI General Chief complaint: Headache Stated complaint: migraine Time Seen by Provider: 12/12/23 02:59 Mode of Arrival: Family Vehicle Source of Information: Patient Limitations: No Limitations Description of Symptoms (Recalled from ER Triage Doc. by RN): 53 yo female presents to ed with CC of migraine x 3 days . PMH: migraines managed by Nurtec and PRN injection meds; denies DM. A&ox4. Verbal,clear speech. No swallowing issues. AROM x 4 extremities. VSS. Patient reports n/v intermittently but states this is also normal. History of Present Illness HPI narrative: This patient is a 53-year-old female with a history of migraines on long-term maintenance medication presenting with concern for a migraine x 3 days. She states that she gets migraines frequently, however they usually do not last this long. She advises that she has no new features with this migraine, and it feels the same as all of her prior migraines aside from the duration. She int ermittently has nausea and vomiting with her migraines, which has been present with this headache as well. She notes that it hurts primarily on the right side of her head, which is very typical for her. No other concerns noted, such as fevers, neck stiffness, vision changes, numbness, tingling, weakness, gait disturbance, or other concerns. No recent falls or traumatic injuries noted. Related Data Home Medications Medication Instructions Recorded Confirmed montelukast 10 mg tablet 10 mg PO PM Allergy symptoms 10/23/20 12/12/23 gabapentin 300 mg capsule 300 mg PO TID NEUROPATHY 03/01/22 12/12/23 amitriptyline 10 mg tablet 10 mg PO DAILY NEUROPATHY 01/09/23 12/12/23 fremanezumab-vfrm 225 mg/1.5 mL 225 mg SQ QMONTH 02/20/23 12/12/23 subcutaneous auto-injector (Ajovy) rimegepant 75 mg disintegrating 75 mg PO ONCE PRN migraines 02/20/23 12/12/23 tablet (Nurtec ODT) Previous Rx's Medication Instructions Recorded estradiol 1 mg tablet 1 mg PO DAILY hormone replacement 11/20/22 #30 tabs Allergies Allergy/AdvReac Type Severity Reaction Status Date / Time No Known Allergies Allergy Verified 05/07/23 11:11 [facility] Disclaimer: The information contained in this section may have been updated after the patient was seen, as this information can be updated by other users. Medical History Multiple pulmonary nodules Mild intermittent asthma History of 2019 novel coronavirus disease (COVID-19) Pulmonary emphysema Dyspnea on exertion Hx of migraines Anxiety Neuropathy Surgical History History of cardiac cath History of hysterectomy Family History Other Cancer Thyroid disorder Social History Smoking Status: Unknown if ever smoked alcohol intake: never substance use type: denies use current occupational status: employed Travel in the last 8 weeks: Inside the [place] household members: spouse housing: house number of children: 2 caffeine: No ROS Obtained: Yes All systems reviewed & no additional complaints except as documented Physical Exam General General appearance: alert and in no apparent distress Head Head exam: atraumatic and normocephalic Eye Eye exam: Present normal appearance, PERRL and EOMI ENT ENT exam: Present normal exam, normal oropharynx, mucous membranes moist and normal external ear exam Neck Neck exam: Present normal inspection, full ROM and trachea midline; Absent tenderness Chest Chest inspection: Present normal inspection and symmetric chest wall rise; Absent tenderness Respiratory Respiratory exam: Present normal lung sounds bilaterally; Absent respiratory distress, wheezes, stridor or accessory muscle use Cardiovascular Cardiovascular exam: Present regular rate and normal rhythm Abdominal Exam Abdominal exam: Present soft; Absent distention, tenderness or guarding Extremities Exam Extremities exam: Present normal inspection, full ROM and normal capillary refill; Absent tenderness or edema Back Exam Back exam: Present normal inspection and full ROM; Absent tenderness Neurological Exam Neurological exam: Present alert, oriented X3, CN II-XII intact, normal gait and other (No focal neurologic deficits noted); Absent motor sensory deficit Psychiatric Psychiatric exam: Present normal affect and normal mood Skin Skin exam: Present warm and dry Medical Decision Making Medical Records Medical records reviewed: Yes I reviewed the patient's medical records. [place] Inquiry Pt receiving controlled substance: No Vital Signs: 12/12/23 02:57 12/12/23 04:05 Temperature 97.7 F 98.2 F Temperature Source Oral Oral Pulse Rate 75 Pulse Rate [Right Brachial] 77 Respiratory Rate 19 19 Blood Pressure 125/77 Blood Pressure Source Automatic Cuff Blood Pressure Source [Right Arm] Automatic Cuff Blood Pressure Position Sitting Blood Pressure Position [Right Arm] Sitting 02 Sat by Pulse Oximetry 99 Oxygen Delivery Method Room Air Room Air Lab Data Lab results reviewed: Yes I reviewed the patient's lab results. Orders (Tests/Meds): ED MEDICATIONS Discontinued Medications Generic Name Dose Route Start Last Admin Trade Name Immanuelq PRN Reason Stop Dose Admin Acetaminophen 1,000 mg 12/12/23 03:13 12/12/23 03:22 Acetaminophen 500mg Tab PO 12/12/23 03:14 1,000 mg ONCE ONE Administration Dexamethasone Sodium Phosphate 10 mg 12/12/23 03:13 12/12/23 03:23 Dexamethasone 4mg/Ml 1ml Vial IV 12/12/23 03:14 10 mg ONCE ONE Administration Diphenhydramine HCl 25 mg 12/12/23 03:13 12/12/23 03:23 Diphenhydramine 50mg/Ml Vial IV 12/12/23 03:14 25 mg ONCE ONE Administration Lactated Ringer's 1,000 mls @ 999 mls/hr 12/12/23 03:13 12/12/23 03:22 Lactated Ringer's 1000 Ml Bag IV 12/12/23 04:13 999 mls/hr .Q1H1M ONE Administration Ketorolac Tromethamine 15 mg 12/12/23 03:13 12/12/23 03:23 Ketorolac 30mg/Ml Vial IV 12/12/23 03:14 15 mg ONCE ONE Administration Prochlorperazine Edisylate 10 mg 12/12/23 03:13 12/12/23 03:24 Prochlorperazine 10mg/2ml Vial IV 12/12/23 03:14 10 mg ONCE ONE Administration Medical Decision Narrative: In summary, this patient is a 53-year-old female presenting to the Emergency Department for evaluation of migraine for 3 days. Differential diagnoses considered include but are not limited to migraine, tension headache, intracranial mass, intracranial hemorrhage. Ruling out the most morbid conditions drove assessment. On exam, the patient is well-appearing and is neurologically intact. She states this migraine feels typical of her prior migraines and she has no new focal neurologic deficits or symptoms. I considered obtaining imaging, including CT scan of the head without contrast, however after discussion with the patient she and I both feel that this is not indicated given that this headache feels no different from her prior migraines. Patient is agreeable to receive a migraine cocktail to assess for symptomatic improvement. She was given a bolus of IV fluids as well as IV Reglan, Toradol, Benadryl, dexamethasone, and oral Tylenol. On reassessment, the patient is resting comfortably and remains neurologically intact with reassuring vital signs on cardiac telemetry. She states she is feeling much better and feels the best that she has in days. She states that her headache has significantly improved. At this time, she feels comfortable going home. Instructions for supportive management, close outpatient follow-up, and strict return precautions were given. The patient was discharged in stable condition after all questions were answered. Critical Care Critical Care Time Critical Care Time: No
[2023-12-12 04:05] VITALS: BP 125/77; PULSE 75; RESP 19; TEMP 36.8; O2SAT 98
== END 2023-12-12 04:09 | disposition home or self-care (01) ==
PROVIDERS: Emergency Provider Emergency Medicine; PCP Nurse Practitioner Family
DX: G43.909 Migraine, unspecified, not intractable, without status migrainosus (principal); R11.2 Nausea with vomiting, unspecified; J43.9 Emphysema, unspecified; G62.9 Polyneuropathy, unspecified
CPT/HCPCS: 96361; 96374; 96375; 99284

== ENCOUNTER 2024-03-31 16:58 | Outpatient (CLI) | payer BC, SELFPAY ==
--- NOTE | 2024-03-31 17:01 | MM_ITS ---
PROCEDURE INFORMATION: Exam: MG Bilateral Screening 3D Mammography Exam date and time: 03/31/2024 4:47 PM Age: 53 years old Clinical indication: Screening mammogram TECHNIQUE: Imaging protocol: Bilateral Screening tomosynthesis and 2D mammography including computer-aided detection (CAD) when performed. COMPARISON: 1. MG MM DIG SCREENING MAMM BI W/CAD 03/25/2023 4:50 PM 2. MG MM DIG SCREENING MAMM BI W/CAD 03/21/2022 4:34 PM 3. MG SCN DIG BREAST TOMOSYN GALEN 02/23/2021 7:53 AM FINDINGS: MAMMOGRAPHY: Breast composition: The breast is heterogeneously dense, which may obscure small masses. Mass: None. Architectural distortion: No new or suspicious architectural distortion. Calcifications: Stable benign-appearing calcifications are present. No new or suspicious cluster of microcalcifications have developed. Asymmetric density: No new or suspicious asymmetric density is present Skin thickening: None. Axillary adenopathy: None. IMPRESSION: No mammographic evidence of malignancy. Recommend annual screening mammography unless otherwise clinically indicated. ASSESSMENT: BI-RADS category 2: Benign.
== END 2024-03-31 23:59 | disposition home or self-care (01) ==
LOC: RAD 16:58
PROVIDERS: PCP Nurse Practitioner Family; Visit Provider Nurse Practitioner Family
DX: Z12.31 Encounter for screening mammogram for malignant neoplasm of breast (principal)
CPT/HCPCS: 77063; 77067

== ENCOUNTER 2025-01-29 16:10 | Outpatient (CLI) | payer BC, SELFPAY ==
--- NOTE | 2025-01-29 16:14 | XR_ITS ---
FINAL REPORT TECHNIQUE: 3 views right elbow CLINICAL HISTORY: PAIN IN RIGHT ELBOW pt states pain from overuse, weedeating COMPARISON: None FINDINGS: RIGHT ELBOW: 3 images of the right elbow were obtained. There is no evidence of fracture or dislocation. The joint spaces are intact. There is no soft tissue abnormality identified. IMPRESSION: No acute bony abnormality. Reviewed, Interpreted and Dictated by Carlos Puckett MD Transcribed by Katja Coley Authenticated and [facility]
== END 2025-01-29 23:59 | disposition home or self-care (01) ==
LOC: RAD 16:11
PROVIDERS: PCP Nurse Practitioner Family; Visit Provider Nurse Practitioner Family
DX: M25.521 Pain in right elbow (principal)
CPT/HCPCS: 73080

== ENCOUNTER 2025-02-08 09:52 | Outpatient (RCR) | payer BC, SELFPAY | END 2025-02-08 23:59 | disposition home or self-care (01) | LOC: OT 09:52 | PROVIDERS: PCP Nurse Practitioner Family; Visit Provider Nurse Practitioner Family | DX: M25.521 Pain in right elbow (principal) | CPT/HCPCS: 97166; 97530 ==

== ENCOUNTER 2025-04-16 16:30 | Outpatient (CLI) | payer BC, SELFPAY ==
--- OUTSIDE RECORDS SUMMARY | 2014-01-21 06:05 | XMS_ITS | Continuity of Care Document ---
Author Organization [facility] Address [address] [place] [address] Phone Care Team Providers Care Global Account Manager Name Role Phone Unavailable Unavailable Unavailable Allergies, Adverse Reactions, Alerts Substance Reaction Status Criticality No Known allergies Medications Medication Instructions Dosage Effective Dates (start - stop) Status Comments Ambien 5 mg tablet take 2 tablet (10MG) by oral route every day at bedtime 10 MG - Active Vigamox 0.5 % Eye Drops instill 1 drop by ophthalmic route into the affected eye every three hours - No Longer Active Procedures Procedure Date OFFICE/OUTPATIENT VISIT, EST OFFICE/OUTPATIENT VISIT, EST OFFICE/OUTPATIENT VISIT, EST OFFICE/OUTPATIENT VISIT, EST Eye Exam Established Patient Intermediat e Advance Directives Directive Yes / No Effective Date File Name Resuscitation Not Answered N/A N/A Life Support Not Answered N/A N/A Intubation Not Answered N/A N/A Antibiotics Not Answered N/A N/A IV Fluid Support Not Answered N/A N/A Tube Feed Not Answered N/A N/A Other Directive N/A N/A WARNING:The information contained in this section is historical and is provided for information only and does not constitute a legal document or any assurance that the information is still accurate. Please verify the information with the winter of the legal document before using it for clinical purposes. Encounters Encounter Description Practice Location Reason(s) For Visit Diagnoses Date Provider Providers Copied on Encounter OFFICE/OUTPAT IENT VISIT, EST [facility] , [address] [place], [address], [place] tel:[phone] [address] [facility] ULCERCORNEAL OPACITY NOS 4 No Information Referring Provider: No Ref Doc No Referring Doc. OFFICE/OUTPAT IENT VISIT, EST [facility] , [address] [place], [address], [place] tel:[phone] [address] [facility] ULCER 4 No Information Referring Provider: No Ref Doc No Referring Doc. OFFICE/OUTPAT IENT VISIT, EST [facility] , [address] [place], [address], [place] tel:[phone] [address] [facility] ULCER 4 [address] [place] [place], [place], [id number]. tel:[phone] Referring Provider: No Ref Doc No Referring Doc. [facility] , [address] [place], [address], [place] tel:[phone] CEI Rains No Information 4 No Information [facility] , [address] [place], [address], [place] tel:[phone] CEI Rains [facility]ER 4 No Information Referring Provider: No Ref Doc No Referring Doc. OFFICE/OUTPAT IENT VISIT, EST [facility] , [address] [place], [address], [place] tel:[phone] ALE[place]RI [address] [facility] ULCER 4 No Information Referring Provider: No Ref Doc No Referring Doc. [facility] , [address] [place], [address], [place] tel:[phone] [address] CORNEAL ULCER NOSRECURRENT CORNEA EROSIONCENTRAL CORNEAL ULCER [address] [place], [place], [id number]. tel:[phone] Referring Provider: No Ref Doc No Referring Doc. Family History Family Member Type Diagnosis Age At Onset Father Problem (finding) Family history unknown Father Problem (finding) HBP Payers Payer name Insurance type Covered republican ID Cha womack(s) Evangelist Jos[employer] [place] [id number] Social History Type Description Quantity Date Captured Comments Alcohol Use Details No Caffeine Use Details Unknown Tobacco Use Status No Information Smoking Status Former smoker Sex Female Chief Complaint And Reason For Visit No Information Reason For Referral Reason For Referral No Information History Of Present Illness Encounter Date Complaint History Of Prese nt Illness No Information Functional Status Date Functional Assessmen t No Information Instructions Date Instruction Additional Infor mation - CENTRAL CORNEAL UL CER OD - resolved with small scar - -Ok to be followed by primary eye care provider, ed to symptoms of infection/inflammation, advised to return immediately should symptoms be noted Related to See impression: general plan - Return in PRN Related to See i mpression: general plan - CENTRAL CORNEAL UL CER - resolvedCultures negative to date- recurrent corneal erosion OD - monitor for now. recent ulcer may have treated erosion. - decrease Durezol to BID for 2 weeks, then Qday X 2 weeksd/c Vigamox and AmphotericinEducational materials provided:Primary Diagnosis Related to See impression: general plan - Return in 4 week(s) Related to See impression: general plan - CENTRAL CORNEAL UL CER - resolvedCultures negative to date- recurrent corneal erosion OD - monitor for now. recent ulcer may have treated erosion. - Start Durezol QID for hazedecrease Vigamox and Amphotericin to TIDd/c bacitraicin james Educational materials provided:Primary Diagnosis Related to See impression: general plan - Return in 2 week(s) Related to See impression: general plan - CENTRAL CORNEAL UL CER- improving.Cultures no growth thus far - decrease Vigamox to Q3H and Amphotericin Q9CYhrtuscd starting steroids next visit Related to See impression: general plan - Return in 5 day(s) Related to See impression: general plan - CENTRAL CORNEAL UL CER- patient and vision improved with vigamox, but clinically noted 3 satellite lesions. 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 - decrease Vigamox to Q2H and start Amphotericin Q2Hf/u 2 days at at 10AM with cornea fellow, sooner prn Related to See impression: general plan - Return in 2 day(s) Related to See impression: general plan 1. traumatic K erosi on - 5 mo's ago with multiple RES since2. New K infiltrate today OD s/p erosion 2 days ago - 1. d/c BCL2. d/c gabe 3. start vig q1h today and candido james qhs (2 drops besivance in office)4. RTC [address] Pond5. Educational materials provided:Primary Diagnosis. Related to See impression: general plan Assessments Type Assessment Date No Information Patient Care Teams Name Effective Dates (start - stop) Status Members No Information
--- OUTSIDE RECORDS SUMMARY | 2018-10-27 17:00 | XMS_ITS | Encounter Summary ---
Author Organization [facility] Address [address] [place] [address] Care Team Providers Care Autoclave Operator Name Role Phone Kaykay Villeda Primary Care Provider [phone] Reason for Referral * Diagnostic Imaging (Routine) - Closed Specialty Diagnoses / Procedures Referred By Contac t Referred To Contact Radiology Diagnoses Pelvic pain Pelvic mass Procedures US Non-ob Transvaginal Vickie Tenorio MD [address] [place] [address] Phone: tel: fax: [facility] Phone: tel: Referral ID Status Reason Start Date Expiration Date Visits Re quested Visits Authorized [id number] Closed 10/27/2018 10/27/2019 1 1 Reason for Visit * Diagnostic Imaging (Routine) - Closed Specialty Diagnoses / Procedures Referred By Contac t Referred To Contact Radiology Diagnoses Pelvic pain Pelvic mass Procedures US Non-ob Transvaginal Vickie Tenorio MD [address] [place] [address] Phone: tel: fax: [facility] Phone: tel: Referral ID Status Reason Start Date Expiration Date Visits Re quested Visits Authorized [id number] Closed 10/27/2018 10/27/2019 1 1 Encounter Details Date Type Department Care Team (Late st Contact Info) Description 10/27/2018 4:00 PM EST Hospital Encounter [facility] [phone] Pelvic pain; Pelvic mass Social History Tobacco Use Types Packs/Day Years Used Date Smoking Tobacco: Former Passive Smoke Exposure: Past Smokeless Tobacco: Never Comments:20 years Alcohol Use Standard Drinks/Week Comments Yes 0 (1 standard drink = 0.6 oz pur e alcohol) Occasional drink AUDIT-C Answer Date Recorded Q1: How often do you have a drink containing alc ohol? Monthly or less 07/20/2020 Average Number of Drinks Not on file 020 Frequency of Binge Drinking Not on file 07/01 Comments No Sex and Gender Information Value Date Recorded Sex Assigned at Female 12/01/2024 9:53 PM EST Legal Sex Female 1:39 PM EDT Gender Identity Not on file Sexual Orientation Not on file documented as of this encounter Functional Status documented as of this encounter Plan of Treatment Upcoming Encounters Date Type Department Care Team (Late Contact Info) Description 06/21/2025 11:15 AM EDT Office Visit [facility] [address] [facility] [address] [place] [address] Mat Hernandez MD [address] [facility] [address] [place] [address] documented as of this encounter Procedures Procedure Name Priority Date/Time Associated Diagnosis Comments US NON-OB TRANSVAGINAL Routine 10/27/2018 4:15 PM EST Pelvic pain Pelvic mass documented in this encounter Results * US Non-ob Transvaginal (10/27/2018 4:15 PM EST) Anatomical Region Laterality Modality Body Ultrasound 10/27/2018 4:08 PM EST Narrative 10/27/2018 5:28 PM EST PAT NAME: VERONICA HUDSON MED REC#: [id number] DA: [id number] PAT GEND: F PAT TYPE: O EXAM MANDO: [id number] REF PHYS VICKIE TENORIO Indication ======== Nonspecified mass on CT scan earlier today pain last Saturday History ====== Medical History Past surgical history: Previous surgeries performed Surgery: Hysterectomy Previous Outcomes 2 Para 2 Method ====== Voluson E6, Transvaginal ultrasound examination, Color Doppler flow performed, 3D ultrasound examination. View: Adequate view Uterus ====== Uterus: Not visualized Uterus details: Uterus is not seen, consistent with stated history. Right Ovary ========= Rt ovary: Visualized Rt ovary D1 62.3 mm Rt ovary D2 32.5 mm Rt ovary D3 22.8 mm Rt ovary other findings: Right ovary appears complex Left Ovary ======== Lt ovary: Normal Lt ovary D1 23.0 mm Lt ovary D2 11.6 mm Lt ovary D3 20.70 mm Cul de Sac ========= Normal. Free fluid visualized: mild Impression ========= Complex right ovarian cyst. Differential diagnosis to include hydrosalpinx, pseudocyst from adhesive disease or ovarian neoplasia Recommendation Clinical judgment is needed to determine if further workup is necessary. Correlation with tumor markers may be of benefit. If expectant management is undertaken would repeat scan in 6 weeks time Green Lumber Grader: Mamie Rosa RDMS Physician: Tj Vitale MD Electronically signed by: Tj Vitale MD at: 17:28 Procedure Note Tj Vitale MD - 10/27/2018 PAT NAME: VERONICA HUDSON [facility] REC#: [id number] DA: [id number] PAT GEND: F PAT TYPE: O EXAM MANDO: [id number] REF PHYS VICKIE TENORIO Indication ======== Nonspecified mass on CT scan earlier today pain last Saturday History ====== Medical History Past surgical history:Previous surgeries performed Surgery:Hysterectomy Previous Outcomes Gravida2 Para2 Method ====== Voluson E6, Transvaginal ultrasound examination, Color Doppler flowperformed, 3D ultrasound examination. View: Adequate view Uterus ====== Uterus:Not visualized Uterus details:Uterus is not seen, consistent with stated history. Right Ovary ========= Rt ovary:Visualized Rt ovary D162.3 mm Rt ovary D232.5 mm Rt ovary D322.8 mm Rt ovary other findings:Right ovary appears complex Left Ovary ======== Lt ovary:Normal Lt ovary D123.0 mm Lt ovary D211.6 mm Lt ovary D320.70 mm Cul de Sac ========= Normal. Free fluid visualized: mild Impression ========= Complex right ovarian cyst. Differential diagnosis to includehydrosalpinx, pseudocyst from adhesive disease or ovarian neoplasia Recommendation Clinical judgment is needed to determine if further workup is necessary.Correlation with tumor markers may be of benefit. If expectant management is undertaken would repeat scan in 6 weeks time Green Lumber Grader: Mamie Rosa RDMS Physician: Tj Vitale MD Electronically signed by: Tj Vitale MD at: 17:28 us Vickie Tenorio MD IMG US ORDERABLES Final Result documented in this encounter Visit Diagnoses Diagnosis Pelvic pain Pelvic mass Abdominal or pelvic swelling, mass or lump, unspecified site documented in this encounter Care Teams Autoclave Operator Relationship Specialty Start Date End Date Kaykay Villeda PA [address] [place] [address] PCP - General Physician Coffee Roaster Helper 10/27/18 03/05/23 documented as of this encounter
--- OUTSIDE RECORDS SUMMARY | 2025-04-16 16:33 | XMS_ITS | Clinical Summary ---
Author Organization [facility] Address [address] [place] [address] Phone Care Team Providers Care Corporate Development Associate Name Role Phone Unavailable Primary Care Provider Unavailabl e Medications magnesium oxide 400 mg Oral CapsuleIndicatio ns:Migraine without aura and without status migrainosus, not intractable Take 1 Cap by mouth daily. Active diazePAM (VALIUM) 10 mg Oral TabletIndication s:Migraine without aura and without status migrainosus, not intractable Take 1 Tab by mouth nightly. 30 Tab 2 8 Active SUMAtriptan (IMITREX) 100 mg Oral TabletIndication s:Migraine without aura and without status migrainosus, not intractable take 1 tablet by mouth NEEDED FOR MIGRAINE FOR UP TO 1 DOSE DIRECTED 9 Tab 9 Active amitriptyline (ELAVIL) 10 mg Oral TabletIndication s:Migraine without aura and without status migrainosus, not intractable take 1 to 2 tablets by mouth at bedtime if needed 60 Tab 9 Active montelukast (SINGULAIR) 10 mg Oral Tablet Take by mouth daily. Active conjugated estrogens (PREMARIN) Vagl Cream Place 0.625 g vaginally daily as needed. Active mirabegron (MYRBETRIQ) 25 mg Oral Tablet Sustained Release 24 hr Take 25 mg by mouth daily. Active predniSONE (DELTASONE) 20 mg Oral TabletIndication s:Rash One po tid for 3 days then one po bid for 3 days then daily 18 Tab 0 Active hydrOXYzine (ATARAX) 25 mg Oral TabletIndication s:Rash TAKE 1 TAB BY MOUTH 3 TIMES DAILY NEEDED FOR ITCHING. 30 Tab 0 Active Active Problems Patient Care Coordination No te Formatting of this note migh t be different from the original. 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 Anxiety associated with depression 06/12/2018 Family History Medical History Relation Name Comments Diabetes Brother High Blood Pressure Brother High Blood Pressure Father graves disease Mother Relation Name Status Comments Brother Alive Father Mother Alive Social History Tobacco Use Types Packs/Day Years Used Date Smoking Tobacco: Former Smokeless Tobacco: Never Alcohol Use Standard Drinks/Week Comments No 0 (1 standard drink = 0.6 oz pur e alcohol) no PHQ-2 Answer Date Recorded PHQ-2 Score 0 11/05/2019 Comments Unknown Sex and Gender Information Value Date Recorded Sex Assigned at Not on file Legal Sex Female 11:34 AM EST Gender Identity Not on file Sexual Orientation Not on file Obstetrics History Para Term AB IAB SAB Ectopic Multiple Livin g Live Births 2 2 Date Outcome GA Total Labor Labor/2nd/3rd Weight Sex Type Anes PTL Laurence A1 A5 Name Clin Para Para Last Filed Vital Signs Vital Sign Reading Time Taken Comments Blood Pressure 136/88 11/05/2019 11:30 AM EST Pulse 90 11/05/2019 11:30 AM EST Temperature 36.9 C (98.4 F) 11/05/2019 11:30 AM EST Respiratory Rate - - Oxygen Saturation 99% 11/05/2019 11:30 AM EST Inhaled Oxygen Concentration - - Weight 86.2 kg (190 lb) 11/05/2019 11:30 AM EST Height 172.7 cm (5' 8 ) 11/05/2019 11:30 AM EST Body Mass Index 28.89 11/05/2019 11:30 AM EST Plan of Treatment Health Maintenance Due Date Last Done Comments DTaP/TDaP/Td (1 - Tdap) 1987 Hepatitis B Vaccine (1 of 3 - 19+ 3-dose series) 1987 Breast Cancer Screening 2008 Cologuard 2013 FIT 2013 Sigmoidoscopy 2013 Virtual Colonography 2013 Pneumococcal Vaccine 50+ (1 of 1 - PCV) 2018 Zoster (1 of 2) 2018 Annual Wellness Exam 06/12/2019 06/12/2018 COVID-19 Vaccine (1 - 2023-2 5 season) 2024 Influenza Vaccine (#1) 2025 07/11/2018 Colon Cancer Screening 09/04/2029 Colonoscopy 09/04/2029 09/04/2019 Meningococcal B Vaccine Aged Out No l onger eligible based on patient's age to complete this topic Goals Goal Patient Goal Type Associated Problems Recent Progress Patient-Stated? Author Maintain a healthy diet, exercise regularly and maintain an ideal body weight General No Caty Patterson LPN Stay Tobacco Free Lifestyle No Caty Patterson LPN Insurance [employer] PPO [employer] PPO
--- OUTSIDE RECORDS SUMMARY | 2025-04-16 16:33 | XMS_ITS | Clinical Summary ---
Author Organization Healthcare Address [address] [place] [address] Care Team Providers Care Subsurface Augmentee Operator Name Role Phone Sera Wheat MD Unavailable [phone] Jorge Goetz APRN Primary Care Provider [phone] Allergies No known active allergies Medications albuterol 108 (90 Base) MCG/ACT inhaler INHALE 2 PUFFS BY MOUTH EVERY 6 HOURS NEEDED FOR SHORTNESS OF BREATH OR WHEEZING 3 Active amitriptyline (Elavil) 10 MG tablet TAKE 1 TO 2 TABLETS BY MOUTH EVERY DAY AT BEDTIME 3 Active cholecalciferol (Vitamin D-3) 50 MCG (2000 UT) tablet Take 1 tablet (2,000 Units) by mouth 1 (one) time each day. Active estradiol (Estrace) 1 MG tablet TAKE 1 TABLET BY MOUTH DAILY FOR HORMONE REPLACEMENT Active Ajovy 225 MG/1.5ML solution auto-injector INJECT 1 ONCE EVERY MONTH Active montelukast (Singulair) 10 MG tablet Take 1 tablet (10 mg) by mouth 1 (one) time each day. Active Nurtec 75 MG tablet dispersible DISSOLVE 1 TABLET BY MOUTH EVERY OTHER DAY 4 Active BL CALCIUM-MAGNESIU M-ZINC PO Take by mouth. Activ e cyanocobalamin 50 MCG tablet Take 1 tablet (50 mcg) by mouth 1 (one) time each day. Active pregabalin (Lyrica) 75 MG capsule Take 1 capsule (75 mg) by mouth 2 (two) times a day. 60 capsule 3 4 Active Social History Tobacco Use Types Packs/Day Years Used Date Smoking Tobacco: Never Smokeless Tobacco: Never Tobacco Cessation:Counseling Given: Not Answered Alcohol Use Standard Drinks/Week Comments Never 0 (1 standard drink = 0.6 oz pur e alcohol) Comments Unknown Sex and Gender Information Value Date Recorded Sex Assigned at Not on file Legal Sex Female 7:00 PM EDT Gender Identity Not on file Sexual Orientation Not on file Last Filed Vital Signs Vital Sign Reading Time Taken Comments Blood Pressure 120/88 12/31/2023 1:13 PM EDT Pulse 74 12/31/2023 1:13 PM EDT Temperature - - Respiratory Rate - - Oxygen Saturation 97% 12/31/2023 1:13 PM EDT Inhaled Oxygen Concentration - - Weight 84.8 kg (187 lb) 12/31/2023 1:13 PM EDT Height - - Body Mass Index - - Plan of Treatment Health Maintenance Due Date Last Done Comments [facility]-Depression Screening 1968 [facility]-Infant/Child/Adol SDOH Screenings 1968 [facility]- SDOH Screenings 1986 [facility]-Adult SDOH Screenings 1986 [facility]-Hepatitis B Vaccines (1 of 3 - 19+ 3-dose series) 1987 [facility]-Pap Smear 1989 [facility]-Cervical Cancer Screening 1998 [facility]-HPV/Cotest 1998 [facility]-DTaP,Tdap,and Td Vaccine s (1 - Tdap) 06/23/2000 06/22/2000 CT Colonography 2013 Colonoscopy 2013 FIT-DNA 2013 FIT 2013 FOBT 2013 Sigmoidoscopy 2013 [facility]-Colorectal Cancer Screening 2013 [facility]-Pneumococcal Vaccine: 50 + Years (1 of 1 - PCV) 2018 [facility]-Zoster Vaccines (1 of 2) 2018 [id number] Vaccine (3 - 2023- season) 2024 06/19/2021, 05/29/2021 [facility]-Influenza Vaccine (#1) 05/31/202509/17, 07/24/2017 HPV Vaccines Aged Out No longer eligi ble based on patient's age to complete this topic [facility]-HIB Vaccines Aged Out No longer e ligible based on patient's age to complete this topic [facility]-Hepatitis A Vaccines Aged Out No longer eligible based on patient's age to complete this topic [facility]-IPV Vaccines Aged Out No longer e ligible based on patient's age to complete this topic [facility]-Rotavirus Vaccines Aged Out No lo nger eligible based on patient's age to complete this topic Insurance ANTH Care Teams Subsurface Augmentee Operator Relationship Specialty Start Date End Date Jorge Goetz APRN [address] [place] [id number] PCP - General 12/31/23 Sera Wheat MD [address] [place] [id number] Resident Neurology 12/31/23
--- OUTSIDE RECORDS SUMMARY | 2025-04-16 16:33 | XMS_ITS | Clinical Summary ---
[facility] Organization [facility] Address [address] [place] [address] Care Team Providers Care Director Of Broadcast Name Role Phone Jorge Goetz APRN Primary Care Provider [phone] Allergies No known active allergies Medications amitriptyline (ELAVIL) 10 MG tablet Take 1 tablet by mouth Daily. 0 8 Active albuterol sulfate HFA 108 (90 Base) MCG/ACT inhaler inhale 2 puffs by mouth every 4 to 6 hours if needed 0 9 Active montelukast (SINGULAIR) 10 MG tablet Take 1 tablet by mouth Every Night. 0 9 Active Magnesium Oxide 400 MG capsule Take 1 capsule by mouth Daily. Active estrogens, conjugated, (Premarin) 0.625 MG tablet Take 1 tablet by mouth Daily. 30 tablet 11 0 Active pregabalin (LYRICA) 75 MG capsuleIndicati ons:Neuropathy Take 1 capsule by mouth 3 (Three) Times a Day for 30 days. 90 capsule 5 5 Active Fremanezumab-vf rm (Ajovy) 225 MG/1.5ML solution auto-injector Inject 225 mg under the skin into the appropriate area as directed Every 30 (Thirty) Days. 1.5 mL 11 5 Active Active Problems Problem Noted Date Diagnosed Date Urine frequency 07/07/2019 Dry mouth 07/07/2019 Vaginal atrophy 07/07/2019 Resolved Problems Problem Noted Date Diagnosed Date Resolved Date Right lower quadrant pain/co mplex cyst September 2018 10/28/2018 07/07/2019 Family History Medical History Relation Name Comments Ovarian cancer Maternal Grandmother Parkinsonism Paternal Grandmother Hillary Arroyo Relation Name Status Comments Maternal Grandmother Paternal Grandmother Hillary Arroyo Alive Social History Tobacco Use Types Packs/Day Years Used Date Smoking Tobacco: Former Passive Smoke Exposure: Past Smokeless Tobacco: Never Tobacco Cessation:Counseling Given: Not Answered Comments:20 years Alcohol Use Standard Drinks/Week Comments [...] Sign Reading Time Taken Comments Blood Pressure 112/76 12/08/2024 4:15 PM EDT Pulse 74 12/08/2024 4:15 PM EDT Temperature - - Respiratory Rate 16 11/14/2018 10:30 AM EST Oxygen Saturation 97% 12/08/2024 4:15 PM EDT Inhaled Oxygen Concentration - - Weight 79.4 kg (175 lb) 12/08/2024 4:15 PM EDT s elf reported Height 172.7 cm (5' 8 ) 12/08/2024 4:15 PM EDT s elf reported Body Mass Index 26.61 12/08/2024 4:15 PM EDT Plan of Treatment Upcoming Encounters Date Type Department Care Team (Late st Contact Info) Description 06/21/2025 11:15 AM EDT Office Visit [facility] [address] [facility] [address] [place] [address] Mat Hernandez MD [address] [facility] [address] [place] [address] Health Maintenance Due Date Last Done Comments MAMMOGRAM 2008 TDAP/TD VACCINES (2 - Tdap) 06/22/2010 06/22/2000 COLOGUARD 2013 COLON CANCER SCREENING 5 YEA R SIGMOIDOSCOPY 2013 COLONOSCOPY [address] CAN[address]ER SCREENING [address] COLONOGRAPHY 2013 FECAL OCCULT BLOOD TEST 2013 FIT Testing (1 year) 2013 Pneumococcal Vaccine 50+ (1 of 1 - PCV) 2018 ZOSTER VACCINE (1 of 2) 2018 ANNUAL PHYSICAL 10/27/2018 HEPATITIS C SCREENING 10/27/2018 Annual Gynecologic Pelvic and Breast Exam 07/21/2021 07/20/2020 COVID-19 Vaccine ( season) 2024, 05/29/2021 INFLUENZA VACCINE 06/30/2025 09/17/2022, 07/24/2017 Insurance [facility] PPO Care Teams Director Of Broadcast Relationship Specialty Start Date End Date Jorge Goetz APRN [address] [place] [address] [place] [address] [address] PCP - General Family Medicine 03/06/23
--- NOTE | 2025-04-16 17:00 | MM_ITS ---
PROCEDURE INFORMATION: Exam: MG Bilateral Screening 3D Mammography Exam date and time: 04/16/2025 4:40 PM Age: 54 years old Clinical indication: Screening exam. TECHNIQUE: Imaging protocol: Bilateral Screening tomosynthesis and 2D mammography including computer-aided detection (CAD) when performed. COMPARISON: 1. MG MM DIG SCREENING MAMM BI W/CAD 03/31/2024 4:47 PM 2. MG MM DIG SCREENING MAMM BI W/CAD 03/25/2023 4:50 PM FINDINGS: MAMMOGRAPHY: Breast composition: The breasts are heterogeneously dense, which may obscure small masses. Mass: No suspicious masses. Architectural distortion: None. Calcifications: No suspicious calcifications. Asymmetric density: None. Skin thickening: None. Axillary adenopathy: None. IMPRESSION: No mammographic evidence of malignancy. Annual screening is recommended unless otherwise clinically indicated. ASSESSMENT: BI-RADS Category 1: Negative.
== END 2025-04-16 23:59 | disposition home or self-care (01) ==
LOC: RAD 16:31
PROVIDERS: PCP Nurse Practitioner Family; Visit Provider Obstetrics & Gynecology
DX: Z12.31 Encounter for screening mammogram for malignant neoplasm of breast (principal); R92.323 Mammographic fibroglandular density, bilateral breasts
CPT/HCPCS: 77063; 77067

== ENCOUNTER 2025-05-02 15:47 | Outpatient (CLI) | payer BC, SELFPAY ==
--- OUTSIDE RECORDS SUMMARY | 2018-10-27 17:00 | XMS_ITS | Encounter Summary ---
Author Organization [facility] Address [address] [place] [address] Care Team Providers Care Customer Security Clerk Name Role Phone Kaykay Villeda Primary Care Provider [phone] Reason for Referral * Diagnostic Imaging (Routine) - Closed Specialty Diagnoses / Procedures Referred By Contac t Referred To Contact Radiology Diagnoses Pelvic pain Pelvic mass Procedures US Non-ob Transvaginal Vickie Tenorio MD [address] [place] [address] Phone: tel: fax: [facility] Phone: tel: Referral ID Status Reason Start Date Expiration Date Visits Re quested Visits Authorized [id number] Closed 10/27/2018 10/27/2019 1 1 Reason for Visit * Diagnostic Imaging (Routine) - Closed Specialty Diagnoses / Procedures Referred By Contac t Referred To Contact Radiology Diagnoses Pelvic pain Pelvic mass Procedures US Non-ob Transvaginal Vickie Tenorio MD [address] [place] [address] Phone: tel: fax: [facility] Phone: tel: Referral ID Status Reason Start Date Expiration Date Visits Re quested Visits Authorized [id number] Closed 10/27/2018 10/27/2019 1 1 Encounter Details Date Type Department Care Team (Late st Contact Info) Description 10/27/2018 4:00 PM EST Hospital Encounter [facility] [phone] Pelvic pain; Pelvic mass Social History Tobacco [...] Description 06/21/2025 11:15 AM EDT Office Visit [facility] [address] [facility] [address] [place] [address] Mat Hernandez MD [address] [facility] [address] [place] [address] documented as of this encounter Procedures Procedure Name Priority Date/Time Associated Diagnosis Comments US NON-OB TRANSVAGINAL Routine 10/27/2018 4:15 PM EST Pelvic pain Pelvic mass documented in this encounter Results * US Non-ob Transvaginal (10/27/2018 4:15 PM EST) Anatomical Region Laterality Modality Body Ultrasound 10/27/2018 4:08 PM EST Narrative 10/27/2018 5:28 PM EST PAT NAME: VERONICA HUDSON MED REC#: [id number] DA: [id number] PAT GEND: F PAT TYPE: O EXAM MANDO: [id number] REF PHYS VICKIE TENORIO Indication ======== Nonspecified [...] would repeat scan in 6 weeks time Shorthand Reporter: Mamie Rosa RDMS Physician: Tj Vitale MD Electronically signed by: Tj Vitale MD at: 17:28 Procedure Note Tj Vitale MD - 10/27/2018 PAT NAME: VERONICA HUDSON [facility] REC#: [id number] DA: [id number] PAT GEND: F PAT TYPE: O EXAM MANDO: [id number] REF PHYS VICKIE TENORIO Indication ======== Nonspecified [...] would repeat scan in 6 weeks time Shorthand Reporter: Mamie Rosa RDMS Physician: Tj Vitale MD Electronically signed by: Tj Vitale MD at: 17:28 us Vickie Tenorio MD IMG US ORDERABLES Final Result documented in this encounter Visit Diagnoses Diagnosis Pelvic pain Pelvic mass Abdominal or pelvic swelling, mass or lump, unspecified site documented in this encounter Care Teams Customer Security Clerk Relationship Specialty Start Date End Date Kaykay Villeda PA [address] [place] [address] PCP - General Physician Coordinator Of Online Programs 10/27/18 03/05/23 documented as of this encounter
[2025-05-02 15:47] VITALS: BP 139/77; PULSE 69; RESP 18; O2SAT 97
--- OUTSIDE RECORDS SUMMARY | 2025-05-02 15:53 | XMS_ITS | Encounter Summary ---
Author Organization [facility] Address [address] [place] [address] Care Team Providers Care Infrastructure Software Engineer Name Role Phone Sera Wheat MD Unavailable [phone] Jorge Goetz APRN Primary Care Provider [phone] Encounter Details Date Type Department Care Team ([facility] Contact Info) Description 04/21/2025 Telephone [facility], Bone & Mineral Metabolism [address] [facility], [address] [place] [address] Nephrology, Physician, [address] [place] [address] Social History Tobacco Use Types Packs/Day Years Used Date Smoking Tobacco: Never Smokeless Tobacco: Never Alcohol Use Standard Drinks/Week Comments Never 0 (1 standard drink = 0.6 oz pur e alcohol) Comments Unknown Sex and Gender Information Value Date Recorded Sex Assigned at Not on file Legal Sex Female 7:00 PM EDT Gender Identity Not on file Sexual Orientation Not on file documented as of this encounter Miscellaneous Notes * Telephone Encounter - Paty Wiggins - 04/21/2025 10:55 AM EDT Patient Phone Message Reason for Call: A referral was forwarded to our office from Endocrinology and referring provider called to check on the status. Brissa states if we need additional information or a new referral to let her know. Best contact number and optimal time of day to reach caller: Brissa--[phone] Note: Please do not reply to this message. Follow-up communication and further actions as a result of this message need to be communicated with the patient directly, if the patient is not active onMyChart. If the patient is active on MyChart, they will receive notification of the communication/outcome via Streamfilehart. documented in this encounter Plan of Treatment Not on file documented as of this encounter Visit Diagnoses Not on filedocumented in this encounter Additional Health Concerns Assessment Noted Time A fall risk assessment has been complete d for the patient 12/31/2023 1:13 PM EDT A Body Mass Index follow-up plan has been documented for the patient 12/31/2023 4:19 PM EDT documented as of this encounter Care Teams Infrastructure Software Engineer Relationship Specialty Start Date End Date Jorge Goetz APRN [address] [place] [id number] PCP - General 12/31/23 Sera Wheat MD [address] [place] [address] Resident Neurology 12/31/23 documented as of this encounter
--- OUTSIDE RECORDS SUMMARY | 2025-05-02 15:53 | XMS_ITS | Clinical Summary ---
Author Organization Healthcare Address [address] [place] [address] Care Team Providers Care Recovery Operator Name Role Phone Sera Wheat MD Unavailable [phone] Jorge Goetz APRN Primary Care Provider [phone] Allergies No known active allergies Medications albuterol [...] a day. 60 capsule 3 4 Active Encounters Date Type Department Care Team Description 04/21/2025 Telephone [facility] Nephrology, Bone & Mineral Metabolism [address] [facility], [address] [place] [address] Nephrology, Physician, from Last 3 Months Social History Tobacco Use Types Packs/Day Years [...] Date Last Done Comments [facility]-Depression Screening 1968 [facility]-/Child/Adol SDOH Screenings 1968 [facility]- SDOH Screenings 1986 [...] 2018 [facility]-Zoster Vaccines (1 of 2) 2018 [id number] Vaccine (3 - 2023- season) 2024 06/19/2021, [...] complete this topic Insurance ANTH Care Teams Recovery Operator Relationship Specialty Start Date End Date Jorge Goetz APRN [address] [place] [id number] PCP - General 12/31/23 Sera Wheat MD [address] [place] [address] Resident Neurology 12/31/23
--- OUTSIDE RECORDS SUMMARY | 2025-05-02 15:53 | XMS_ITS | Clinical Summary ---
Author Organization [facility] Address [address] [place] [address] Phone Care Team Providers Care Milk Runner Name Role Phone Unavailable Primary Care Provider [...] from the original. cici- 06/12/2018 as expected [id number] UDS- 06/12/2018 collected CDA 06/12/2018 No known [...]
--- OUTSIDE RECORDS SUMMARY | 2025-05-02 15:53 | XMS_ITS | Clinical Summary ---
Author Organization [facility] Address [address] [place] [address] Care Team Providers Care Engraver Signature Name Role Phone Jorge Goetz APRN Primary Care Provider [phone] Allergies No known active allergies Medications amitriptyline [...] 06/21/2025 11:15 AM EDT Office Visit [facility] [address] [facility] [address] [place] [address] Mat Hernandez MD [address] [facility] [address] [place] [address] Health Maintenance Due Date Last [...] 05/29/2021 INFLUENZA VACCINE 06/30/2025 09/17/2022, 07/24/2017 Insurance [facility] PPO Care Teams Engraver Signature Relationship Specialty Start Date End Date Jorge Goetz APRN [address] [place] [address] [place] [address] [address] PCP - General Family Medicine 03/06/23
[2025-05-02] MEDS: DEXAMETHASONE 4MG/ML 1ML VIAL 4 MG IM (16:01)
[2025-05-02] MEDS: KETOROLAC 30MG/ML VIAL 15 MG IM (16:02)
== END 2025-05-02 15:50 | disposition home or self-care (01) ==
LOC: INF 15:51
PROVIDERS: PCP Nurse Practitioner Family; Visit Provider Nurse Practitioner Family
DX: R51.9 Headache, unspecified (principal)
CPT/HCPCS: 96372; G0463; J1100; J1200; J1885